=== PATIENT | female | born 1945 | race Caucasian/White ===

== ENCOUNTER 2019-06-12 21:50 | Inpatient (IN) | payer MEDICARE, MEDICAID, SELFPAY ==
[2019-06-12] VITALS (11 sets, daily range): BP systolic 160–204; BP diastolic 87–117; PULSE 88–104; RESP 15–20; TEMP 36.4–36.8; O2SAT 90–97; BMI 18.7
--- NOTE | 2019-06-12 22:02 | ED_ITS ---
Documented by User: SHANE Christianson 06/12/19 23:01 HPI - Extremity Problem General: Chief complaint: Extremity Injury, Lower Stated complaint: FALL Time Seen by Provider: 06/12/19 21:58 History of Present Illness: HPI Narrative: Patient arrived via ambulance from the senior living. History of fall out of the wheelchair landing on her right hip. Complains about hip pain. Patient is somewhat out of it with fentanyl do gui but does understand commands. Was given fentanyl in the ambulance. MD Complaint: extremity pain Onset (ago): hour(s) Pain Consistency: constant Location: right and lower extremity (Hip) Quality: aching Associated symptoms: Deny chest pain, fever(s) or rash Review of Systems Narrative: Patient is currently being treated for urinary tract infection via the senior living. Very difficult to elicit any kind history due to mediation. Awaiting history from [place]. Please examine senior living notes and history. Const: Denies: fever, chills or body aches Eyes: Denies: change in vision or blurry vision ENMT: Denies: throat pain or nasal congestion Card: Denies: chest pain or shortness of breath on exertion Resp: Denies: shortness of breath, productive cough or non-productive cough GI: Denies: abdominal pain, nausea or vomiting Musc: Reports: extremity pain Skin/Breast: Denies: rash Neuro: Denies: headache Psych: Denies: anxiety or depression Eber/Lymph: Denies: easy bruising PFSH ED PFSH: Statuses (acute, chronic, etc) shown below reflect problem list status as previously entered and may not be historically accurate Family History Denies family history of CAD (coronary artery disease) Clotting disorder Chronic kidney disease (CKD) Cancer Social History Smoking and tobacco status: never smoked Alcohol intake: never Substance/Drug Use: never 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 Physical Exam Const: COMMON NORMALS: no apparent distress, average body habitus and oriented x3 HENMT: COMMON NORMALS: normocephalic HEAD & SCALP: normal to inspection and normocephalic FACE & SINUS: normal facial exam Eye: COMMON NORMALS: conjunctivae normal GENERAL EYE: normal appearance of both eyes CONJUNCTIVA: Yes conjunctivae normal Neck/C-Spine: COMMON NORMALS: no JVD Chest: COMMONS NORMALS: inspection of chest normal Resp: COMMON NORMALS: normal respiratory effort and clear to auscultation bilaterally AUSCULTATION: clear to auscultation bilaterally, rhonchi and diminished lung sounds Cardio: COMMON NORMALS: no JVD, regular rate and regular rhythm RATE: regular rate RHYTHM: regular rhythm GI: COMMON NORMALS: normal to inspection, nondistended, normoactive bowel so unds Extremity: COMMON NORMALS: normal to inspection and full ROM OTHER: pt indicates that her right hip is hurting. She has no bruising lacerations or abrasions noted. Scalp exam is negative neuro is intact. Good distal neurovascular status right extremity. Neuro: COMMON NORMALS: oriented x3 Course Vital Signs: Vital signs: Vital Signs Temperature 97.5 F L 06/13/19 03:33 Pulse Rate 111 H 06/13/19 05:17 Respiratory Rate 16 06/13/19 04:06 Blood Pressure 131/75 06/13/19 05:17 Pulse Oximetry 96 06/13/19 05:17 MDM - Extremity (Nontraumatic) MDM Narrative: Medical decision making narrative: Discussed case with Dr. Twin Rodrigez handoff to him. I spoke with Dr. Marco Antnoio odonnell for admission Lab Data: Labs: Lab Results 06/12/19 06/12/19 06/12/19 Range/Units 20:55 20:55 20:55 WBC 13.1 H (4.0-10.0) 10^3/ uL RBC 5.30 (4.1-5.3) 10^6/u L Hgb 13.9 (11.5-15.3) g/dL Hct 42.8 (37.0-47.0) % MCV 80.8 L (81-99) fL MCH 26.2 L (28.0-34.0) pg MCHC 32.5 (30.0-36.0) g/dL RDW 13.4 (12.1-15.1) % Plt Count 208 (130-400) 10^3/c mm MPV 12.4 H (7.4-10.4) fL Neut % (Auto) 81.0 % Lymph % (Auto) 11.6 % [place] % (Auto) 5.6 % Eos % (Auto) 1.1 % Baso % (Auto) 0.3 % Neut # (Auto) 10.6 H (1.8-7.7) 10^3/u L Lymph # (Auto) 1.5 (0.8-4.8) 10^3/u L [place] # (Auto) 0.7 (0.2-0.9) 10^3/u L Eos # (Auto) 0.1 (0.0-0.8) 10^3/u L Baso # (Auto) 0.0 (0.0-0.1) 10^3/u L Nucleated RBC % (a uto) 0 % Nucleated RBCs # 0.0 /100WBC PT 13.20 (10.5-13.3) SECO NDS INR 0.97 (0.8-1.2) APTT 31.8 (23.9-36.7) SECO NDS Sodium 140 (136-145) mmol/L Potassium 3.9 (3.5-5.1) mmol/L Chloride 100 (98-107) mmol/L Carbon Dioxide 25 (22-29) mmol/L Anion Gap 18.9 (5-19) BUN 20 (8-23) mg/dL Creatinine 0.7 (0.5-0.9) mg/dL Glucose 134 H (74-106) mg/dL Calcium 10.3 (8.5-10.5) mg/dL Total Bilirubin 0.4 (0.15-1.2) mg/dL AST 26 (0-32) U/L ALT 18 (0-33) U/L Alkaline Phosphata se 85 (35-105) IU/L Total Protein 7.7 (6.6-8.7) g/dL Albumin 4.7 (3.5-5.2) g/dL Globulin 3.0 (1.3-4.6) g/dL Imaging Data^: Xray Ortho: My impression: Right femoral neck fracture, displaced Discharge Plan Discharge Patient Disposition: Admitted As Inpatient Admit Provider: Cong Millard Discharge Date/Time: 06/12/19 23:58 Coding Level of Care Code ED Change Analyst for Chg Fwd Exam Problem Focused Documented by User: Twin Rodrigez DO 06/13/19 05:26 HPI - Extremity Problem General: Chief complaint: Extremity Injury, Lower Stated complaint: FALL Time Seen by Provider: 06/12/19 21:58 PFSH ED PFSH: Statuses (acute, chronic, etc) shown below reflect problem list status as previously entered and may not be historically accurate Family History Denies family history of CAD (coronary artery disease) Clotting disorder Chronic kidney disease (CKD) Cancer Social History Smoking and tobacco status: never smoked Alcohol intake: never Substance/Drug Use: never 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 I agree with his history, evaluation, and work-up. This patient has a right femoral neck fracture. I discussed the case with orthopedics, who is willing to consult. The midlevel provider discussed with the hospitalist, who has evaluated the patient in the ER. I have written admission orders Vital Signs: Vital signs: Vital Signs Temperature 97.5 F L 06/13/19 03:33 Pulse Rate 111 H 06/13/19 05:17 Respiratory Rate 16 06/13/19 04:06 Blood Pressure 131/75 06/13/19 05:17 Pulse Oximetry 96 06/13/19 05:17 MDM - Extremity (Nontraumatic) Lab Data: Labs: Lab Results 06/12/19 06/12/19 06/12/19 Range/Units 20:55 20:55 20:55 WBC 13.1 H (4.0-10.0) 10^3/ uL RBC 5.30 (4.1-5.3) 10^6/u L Hgb 13.9 (11.5-15.3) g/dL Hct 42.8 (37.0-47.0) % MCV 80.8 L (81-99) fL MCH 26.2 L (28.0-34.0) pg MCHC 32.5 (30.0-36.0) g/dL RDW 13.4 (12.1-15.1) % Plt Count 208 (130-400) 10^3/c mm MPV 12.4 H (7.4-10.4) fL Neut % (Auto) 81.0 % Lymph % (Auto) 11.6 % [place] % (Auto) 5.6 % Eos % (Auto) 1.1 % Baso % (Auto) 0.3 % Neut # (Auto) 10.6 H (1.8-7.7) 10^3/u L Lymph # (Auto) 1.5 (0.8-4.8) 10^3/u L [place] # (Auto) 0.7 (0.2-0.9) 10^3/u L Eos # (Auto) 0.1 (0.0-0.8) 10^3/u L Baso # (Auto) 0.0 (0.0-0.1) 10^3/u L Nucleated RBC % (a uto) 0 % Nucleated RBCs # 0.0 /100WBC PT 13.20 (10.5-13.3) SECO NDS INR 0.97 (0.8-1.2) APTT 31.8 (23.9-36.7) SECO NDS Sodium 140 (136-145) mmol/L Potassium 3.9 (3.5-5.1) mmol/L Chloride 100 (98-107) mmol/L Carbon Dioxide 25 (22-29) mmol/L Anion Gap 18.9 (5-19) BUN 20 (8-23) mg/dL Creatinine 0.7 (0.5-0.9) mg/dL Glucose 134 H (74-106) mg/dL Calcium 10.3 (8.5-10.5) mg/dL Total Bilirubin 0.4 (0.15-1.2) mg/dL AST 26 (0-32) U/L ALT 18 (0-33) U/L Alkaline Phosphata se 85 (35-105) IU/L Total Protein 7.7 (6.6-8.7) g/dL Albumin 4.7 (3.5-5.2) g/dL Globulin 3.0 (1.3-4.6) g/dL Discharge Plan Discharge Patient Disposition: Admitted As Inpatient Admit Provider: Cong Millard Discharge Date/Time: 06/12/19 23:58 Coding Level of Care Code ED Change Analyst for Chg Fwd Exam Problem Focused
--- NOTE | 2019-06-12 22:02 | XRR_ITS ---
PROCEDURE INFORMATION: Exam: XR Pelvis Exam date and time: 06/12/2019 10:04 PM Age: 73 years old Clinical indication: Injury or trauma; Fall; Initial encounter; Blunt trauma (contusions or hematomas); Right; Hip; Injury date: 06/12/19; Additional info: Fall nh, right hip pain TECHNIQUE: Imaging protocol: XR pelvis. Views: 1 or 2 view. COMPARISON: No relevant prior studies available. FINDINGS: Bones/joints: There is an acute transverse fracture of the right femoral neck with resultant coxa vera deformity. Soft tissues: Unremarkable. XR/XR pelvis 1-2V* [id number] IMPRESSION: Acute transverse fracture of the right femoral neck
--- NOTE | 2019-06-12 22:05 | ECG_ITS ---
Measurements Intervals [place] Rate: 100 P: 74 OH: 152 QRS: 46 QRSD: 85 T: 74 QT: 360 QTc: 466 SINUS TACHYCARDIA SEPTAL MYOCARDIAL INFARCTION , PROBABLY OLD [40+ ms Q WAVE IN V1/V2] No previous ECG available for comparison Electronically Signed On 06-13-2019 18:52:19 TIMBER SETTER by Cong Hutchison M.D. [email or web address]
--- NOTE | 2019-06-12 22:05 | XRR_ITS ---
PROCEDURE INFORMATION: Exam: XR Chest, 1 View Exam date and time: 06/12/2019 10:06 PM Age: 73 years old Clinical indication: Injury or trauma; Fall; Initial encounter; Blunt trauma (contusions or hematomas); Injury date: 06/12/19; Additional info: PT fell, unknown how long before she was found TECHNIQUE: Imaging protocol: XR of the chest Views: 1 view. COMPARISON: No relevant prior studies available. FINDINGS: Lungs: There is a background of severe emphysematous change and parenchymal scarring. Some strandy opacities are present in the left lower hemithorax likely representing atelectasis. Pleural space: Unremarkable. No pleural effusion. No pneumothorax. Heart/Mediastinum: Unremarkable. No cardiomegaly. Bones/joints: Unremarkable. XR/XR chest 1V portable [id number] IMPRESSION: 1. Background of severe emphysema with pulmonary fibrosis. 2. Strandy opacities in the left lung base likely represents atelectasis.
[2019-06-12 22:13] LABS: Basophils % 0.3 %; Eosinophils # 0.1 10^3/uL (0.0-0.8); Eosinophils % 1.1 %; Hematocrit 42.8 % (37.0-47.0); Hemoglobin 13.9 g/dL (11.5-15.3); Lymphocytes # 1.5 10^3/uL (0.8-4.8); Lymphocytes % 11.6 %; Mean Corpuscular HGB Conc 32.5 g/dL (30.0-36.0); Mean Corpuscular Hemoglobin 26.2 pg (28.0-34.0); Mean Corpuscular Volume 80.8 fL (81-99); Mean Platelet Volume 12.4 fL (7.4-10.4); Monocytes # 0.7 10^3/uL (0.2-0.9); Monocytes % 5.6 %; Neutrophils # 10.6 10^3/uL (1.8-7.7); Nucleated Red Blood Cells % 0 %; Platelet Count 208 10^3/cmm (130-400); Red Cell Distribution Width 13.4 % (12.1-15.1); White Blood Count 13.1 10^3/uL (4.0-10.0)
[2019-06-12 22:27] LABS: Alanine Aminotransferase 18 U/L (0-33); Albumin Level 4.7 g/dL (3.5-5.2); Alkaline Phosphatase 85 IU/L (35-105); Anion Gap 18.9 (5-19); Aspartate Amino Transferase 26 U/L (0-32); Blood Urea Nitrogen 20 mg/dL (8-23); Calcium 10.3 mg/dL (8.5-10.5); Carbon Dioxide 25 mmol/L (22-29); Chloride 100 mmol/L (98-107); Glucose 134 mg/dL (74-106); Potassium 3.9 mmol/L (3.5-5.1); Sodium 140 mmol/L (136-145); Total Bilirubin 0.4 mg/dL (0.15-1.2); Total Protein 7.7 g/dL (6.6-8.7)
[2019-06-12] MEDS: ondansetron 2 mg/ML SDV 2 mL 4 MG IVP ×2 (22:47→23:49)
[2019-06-12] MEDS: morphine 4 mg/mL SDV 1 mL 2 MG IVP ×2 (22:47→23:48)
[2019-06-12 22:49] LABS: INR 0.97 (0.8-1.2)
[2019-06-12 22:50] LABS: Partial Thromboplastin Time 31.8 SECONDS (23.9-36.7)
--- NOTE | 2019-06-12 23:17 | PM.HP ---
Providers/Chief Complaint Chief Complaint: RIGHT FEMORAL NECK FRACTURE History of Present Illness Rochelle Grubbs is a 73 year old female carries diagnosis of multiple sclerosis, wheelchair-bound, the past medical history was sent from her alf [facility] for right leg pain. Patient is not a reliable historian, she is stating that she went to bathroom and fell. Currently her right leg pain is 6/10. I called [facility] alf, they are endorsing that she was found in a wheelchair and was complaining of right leg pain there was no witnessed fall. Her blood pressure was high, she is not on any antihypertensives, she is on mechanically soft diet for dysphagia, she uses wheelchair for ambulation, she has had multiple falls in the past due to her multiple sclerosis and generalized leg weakness. Her speech is slow at baseline, with cognitive impairment. Diagnostics in ER showed femoral neck fracture, patient is hypertensive, she was hypoxic initially to 90% on room air and currently doing well on 2 L, tachycardic I ordered CTA chest to rule out a clot which could have caused a syncopal event, fall Temperature 97.4, pulse 106, respiratory 22, O2 saturation 92% on 2 L, blood pressure 190/120 Review of Systems Const: Reports: body aches, change in appetite, fatigue and malaise; Denies: chills Eyes: Denies: change in vision ENMT: Denies: throat pain Card: Denies: chest pain Resp: Denies: shortness of breath GI: Denies: abdominal pain : Denies: flank pain Musc: Reports: joint pain and limited range of motion; Denies: neck pain Skin/Breast: Denies: rash Neuro: Reports: numbness in extremities and weakness in extremities Psych: Reports: anxiety Endo: Denies: excessive urination Eber/Lymph: Denies: easy bruising All/Imm: Denies: hives Medications/Allergies Home Medications Medication Instructions Recorded Confirmed Last Taken Type [id number] fumarate-FA 1 tab PO DAILY 06/12/19 06/12/19 06/12/19 History [] acetaminophen [Tylenol] 650 mg PO QID PRN 06/12/19 06/12/19 06/12/19 History amoxicillin 250 mg PO TID 06/12/19 06/12/19 06/12/19 History cetirizine [Zyrtec] 10 mg PO DAILY 06/12/19 06/12/19 06/12/19 History ferrous sulfate 325 mg PO DAILY 06/12/19 06/12/19 06/12/19 History fluoxetine 15 mg PO DAILY 06/12/19 06/12/19 06/12/19 History guaifenesin 200 mg PO Q6H 06/12/19 06/12/19 06/12/19 History ondansetron HCl [Zofran] 4 mg PO Q6H PRN 06/12/19 06/12/19 06/12/19 History Allergies Allergy/AdvReac Type Severity Reaction Status Date / Time No Known Allergies Allergy Verified 06/12/19 21:59 PFSH Acute PFSH: Statuses (acute, chronic, etc) shown below reflect problem list status as previously entered and may not be historically accurate Medical History (Updated 06/13/19 @ 00:05 by Cong Millard MD) Anxiety (Acute) Dementia (Acute) Multiple sclerosis (Acute) UTI (urinary tract infection) (Acute) Surgical History (Updated 06/13/19 @ 00:02 by Cong Millard MD) No pertinent past surgical history (Acute) Family History (Updated 06/13/19 @ 00:02 by Cong Millard MD) Denies family history of CAD (coronary artery disease) Clotting disorder Chronic kidney disease (CKD) Cancer Social History (Updated 06/13/19 @ 00:03 by Cong Millard MD) Smoking and tobacco status: never smoked Alcohol intake: never Substance/Drug Use: never Housing: Residential Vitals/I&O/Wt Last Vital Signs Temp 98.2 F 06/12/19 21:51 Pulse 104 H 06/12/19 22:15 Resp 18 06/12/19 22:47 BP 199/100 06/12/19 22:15 Pulse Ox 97 06/12/19 22:15 Weight last 48 hrs Weight 51.165 kg Physical Exam Narrative: EXAM NARRATIVE: Appears stated age, Her speech is slow, but she is able to articulate her thoughts, she is able to comprehend my questions and answer questions appropriately Cranial nerves grossly intact cranial nerves II to XII Lower extremity limited range of motion Right leg slightly shorter than the left Dorsalis pedis pulses 2+ bilaterally No active signs of bruising, gangrene or ulcers on skin S1, S2 no signs of heart failure or JVD Lungs are clear to auscultation Abdomen soft nontender nondistended She appears dehydrated with mild distress Appears anxious Data : 06/12/19 20:55 06/12/19 20:55 Micro: Microbiology 06/12/19 22:13 Blood Culture - Preliminary Blood SPECIMEN COLLECTED A&P Assessment and plan (1) Fracture of femoral neck, right: Status: Acute Code(s): S72.001A - Fracture of unspecified part of neck of right femur, initial encounter for closed fracture (2) Hypertension: Status: Acute Code(s): I10 - Essential (primary) hypertension (3) Hypoxia: Status: Acute Code(s): R09.02 - Hypoxemia Additional A&P Information Acute transverse fracture of right femoral neck She has good dorsalis pedis pulses bilaterally Keep n.p.o., D5 half-normal fluids, pain management with opioids and bowel regimen Schmitt catheter to be placed Orthopedic surgeon Dr. Guillory has been contacted by Dr. Rodrigez Patient sustained a fall in the bathroom, she has had multiple falls in the past, she has a history of multiple sclerosis, She is currently being treated for UTI with amoxicillin, I will change that to ceftriaxone for now Acute hypoxic respiratory failure, she was saturating 90% on room air, currently doing well on 2 L, she is tachycardic We will get CTA chest to rule out PE No petechiae evident on her chest, air embolism will be in differential as well Hypertension: Not on any antihypertensive at the facility, currently she is in pain which I think is attributing to her hypertension I would avoid use of lisinopril We will try hydralazine IV for now Patient is DNR/DNI SCDs for DVT prophylaxis Attestations Medical Necessity Statement*: Anticipating her stay to cross more than 2 midnights because of acute fracture of femoral neck Time Spent in Patient Care: 50 Coding Level of Care Code Acute Business Education Instructor for Aditi Fwd Diagnoses Fracture of femoral neck, right S72.001A Hypertension I10 Hypoxia R09.02
--- NOTE | 2019-06-12 23:18 | CTR_ITS ---
PROCEDURE INFORMATION: Exam: CT Angiography Chest With Contrast Exam date and time: 06/12/2019 11:50 PM Age: 73 years old Clinical indication: Dyspnea; Additional info: Hypoxia TECHNIQUE: Imaging protocol: Computed tomographic angiography of the chest with intravenous contrast. 3D rendering: MIP and/or 3D reconstructed images were created by the technologist. Total DLP: 484 mGy-cm Radiation optimization: All CT scans at this facility use at least one of these dose optimization techniques: automated exposure control; mA and/or kV adjustment per patient size (includes targeted exams where dose is matched to clinical indication); or iterative reconstruction. Contrast material: OMNI 350; Contrast volume: 95 ml; Contrast route: IV; COMPARISON: CR (CHEST, ) 06/12/2019 10:18 PM FINDINGS: Pulmonary arteries: Normal. No pulmonary emboli. Aorta: Calcifications are seen within the thoracic aorta. Lungs: There is a background of centrilobular emphysema and bronchiectasis. Pleural space: There are calcific pleural plaques seen within the upper hemithoraces bilaterally. Heart: Calcifications are present within the coronary arteries. Lymph nodes: Unremarkable. No enlarged lymph nodes. Bones/joints: Unremarkable. No acute fracture. Soft tissues: Unremarkable. CT/CT angio chest PE protcl [id number] IMPRESSION: 1. There is no evidence for pulmonary emboli. 2. Background of centrilobular emphysema and bronchiectasis 3. Calcified pleural plaques within the upper hemithoraces bilaterally. Radiation Dose CTDIVOL = (mGy): DLP = 484 (mGy-cm)
[2019-06-12] MEDS: metoprolol tartrate 1 mg/1 mL SDV 5 mL 5 MG IV (23:49)
[2019-06-13] VITALS (12 sets, daily range): BP systolic 114–182; BP diastolic 61–100; PULSE 63–111; RESP 16–20; TEMP 36.4–37.9; O2SAT 88–98
[2019-06-13 01:04] LABS: Glucose Point of Care 126 mg/dL (70-110)
--- NOTE | 2019-06-13 01:19 | CTR_ITS ---
PROCEDURE INFORMATION: Exam: CT Head Without Contrast Exam date and time: 06/13/2019 1:27 AM Age: 73 years old Clinical indication: Weakness, facial; Additional info: Stroke alert TECHNIQUE: Imaging protocol: Computed tomography of the head without contrast. Total DLP: 880.15 mGy-cm Radiation optimization: All CT scans at this facility use at least one of these dose optimization techniques: automated exposure control; mA and/or kV adjustment per patient size (includes targeted exams where dose is matched to clinical indication); or iterative reconstruction. Other technique: STROKE PROTOCOL was implemented. COMPARISON: No relevant prior studies available. FINDINGS: Brain: There is mild diffuse cerebral atrophy. Patchy areas of hypoattenuation are seen in the deep white matter of the cerebral hemispheres bilaterally compatible with deep white matter microvascular disease. Focal hypoattenuation seen within the external capsules bilaterally likely representing chronic infarctions. Focal hypoattenuation is seen within the right caudate head compatible with a chronic lacunar infarction. Focal hypoattenuation seen within the left basal ganglia compatible with a chronic lacunar infarction. Ventricles: Normal. No ventriculomegaly. Bones/joints: Unremarkable. No acute fracture. Sinuses: Visualized sinuses are unremarkable. No fluid levels. Mastoid air cells: Visualized mastoid air cells are well aerated. Soft tissues: Unremarkable. CT/CT head wo con* [id number] IMPRESSION: There are no acute intracranial findings. ASSESSMENT: ASPECTS ([place] Stroke Program Early CT Score) is 10. Radiation Dose CTDIVOL = (mGy): DLP = 880.15 (mGy-cm)
--- NOTE | 2019-06-13 02:15 | PC.NURSE ---
stroke alert. Pt in ct on my arrival. LKW 0030 06/13/2019. NIHSS 4. Patient confused at baseline and not able to answer my assessment questions appropriately. Contacted patient's DPOASonia, and updated her on situation. Patient determined not to be a tPA candidate due to current hip fx, possibly related to MS, and patient returning to baseline.
--- NOTE | 2019-06-13 03:15 | USCV_ITS ---
Rochelle Grubbs Age: 73 Gender: F : 1945 Exam Date: 06/13/2019 12:36 Ordering Phys: Cong Millard MD Technologist: Romi Dominguez Exam Location: [facility] [place] Indication: Poor functional status, preoperative test BP: 145 / 75 HR: 88 Rhythm: Sinus Technical Quality: Fair MEASUREMENTS (Male / Female) Normal Values 2D ECHO LV Diastolic Diameter PLAX 3.3 cm 4.2 - 5.9 / 3.9 - 5.3 cm LV Systolic Diameter PLAX 2.1 cm LV Chamber Size 3.1 cm IVS Diastolic Thickness 1.6 cm 0.6 - 1.0 / 0.6 - 0.9 cm IVS Systolic Thickness 2.0 cm LVPW Diastolic Thickness 0.9 cm 0.6 - 1.0 / 0.6 - 0.9 cm LVPW Systolic Thickness 1.1 cm RV Chamber Size 1.8 cm LVOT Diameter 2.0 cm LV Ejection Fraction 2D Teich 65.3 % LV Ejection Fraction MOD 2C 69.1 % LV Ejection Fraction 2C AL 76.1 % LA Diameter 3.3 cm LA Width 3.0 cm LA Height 4.8 cm RA Width 2.6 cm RA Height 3.7 cm Aorta at Sinotubular Diameter 2.2 cm M-MODE LV Diastolic Diameter MM 4.7 cm 4.2 - 5.9 / 3.9 - 5.3 cm LV Systolic Diameter MM 2.6 cm LV Ejection Fraction MM Teich 75.3 % IVS Diastolic Thickness MM 1.0 cm 0.6 - 1.0 / 0.6 - 0.9 cm IVS Systolic Thickness MM 1.8 cm LVPW Diastolic Thickness MM 1.1 cm 0.6 - 1.0 / 0.6 - 0.9 cm LVPW Systolic Thickness MM 1.5 cm RV Diastolic Diameter MM 1.2 cm Aortic Annulus Diameter 3.2 cm LA Ao Ratio MM 1.0 MV E Point Septal Separation 0.7 cm DOPPLER AV Peak Velocity 121.0 cm/s LVOT Peak Velocity 98.0 cm/s AV Area Cont Eq vti 2.6 cm squared AV Area Cont Eq pk 2.6 cm squared MV Area PHT 2.6 cm squared Mitral E to A Ratio 0.8 MV E' Velocity 7.0 cm/s Mitral E to MV E' Ratio 12.7 Mitral E to LV E' Lateral Ratio 10.8 Mitral E to LV E' Septal Ratio 15.5 TR Peak Velocity 314.0 cm/s TR Peak Gradient 39.4 mmHg TV Peak E Velocity 59.0 cm/s Right Atrial Pressure 3.0 mmHg Pulmonary Artery Systolic Pressu 42.4 mmHg PV Peak Velocity 80.0 cm/s RV Acceleration Time 0.1 s RV Ejection Time 0.3 s RV AcT/ET 0.3 FINDINGS Left Ventricle Normal left ventricular cavity size. Normal left ventricular systolic function. No regional wall motion abnormalities. Left ventricular ejection fraction is estimated at 70 %. Grade I/IV diastolic dysfunction (abnormal relaxation filling pattern), normal to mildly elevated filling pressures. Right Ventricle The right ventricle is normal in size and function. Mild pulmonary hypertension, RVSP 42.4 mmHg. Right Atrium The right atrium is normal in size. Left Atrium The left atrium is normal in size. Mitral Valve Mildly thickened mitral valve. No mitral valve stenosis. Mild mitral valve regurgitation. Aortic Valve Mild aortic valve calcification. No aortic valve stenosis. Trace aortic valve regurgitation. Tricuspid Valve Structurally normal tricuspid valve without significant stenosis or regurgitation. Pulmonic Valve Structurally normal pulmonic valve without significant stenosis. There is no pulmonic regurgitation. Pericardium Normal pericardium without effusion. Aorta Normal ascending aorta dimension. CONCLUSIONS 1-Normal left ventricular cavity size. Normal left ventricular systolic function. No regional wall motion abnormalities. Left ventricular ejection fraction is estimated at 70 %. Grade I/IV diastolic dysfunction (abnormal relaxation filling pattern), normal to mildly elevated filling pressures. 2-Mildly thickened mitral valve. No mitral valve stenosis. Mild mitral valve regurgitation. 3-The right ventricle is normal in size and function. Mild pulmonary hypertension, RVSP 42.4 mmHg. 4-Mild aortic valve calcification. No aortic valve stenosis. Trace aortic valve regurgitation. 5-There is no pericardial effusion. 6-Right atrial pressure is around 0-5 mm of mercury. Patient appeared to be dry. 7-There are no prior echocardiogram studies to compare. Cong Hutchison MD (Electronically Signed) Final Date: 13 June 2019 16:35 S
--- NOTE | 2019-06-13 03:34 | PC.NURSE ---
STROKE ALERT Nurse assessed patient upon admission and patient had right side facial droop. Charge nurse Yvette and Dr Millard notified, Dr Millard at for patient assessment. Stroke alert called at 0114, NIH score 4 for right facial droop, mild slurred speech, sensory deficit. Patient taken immediately to CT for CT Head and was taken to ED for Tele- stroke consult. Fuel Cell Builder Barber THORNTON and Dr Elia FIGUEROA MD at at this time as well with stroke team. MRI recommended by tele-stroke doctor. Patient is not a candidate of TPA at this time. Patient's sister Sonia notified of situation and is agreeable. Patient is agreeable of treatment as well. Patient returned to [facility] and appears to be at baseline at this time, patient continues with mild facial droop. Patient on telemetry and is being monitored by nursing staff at this time. Patient does not voice any further needs or complains at this time.
[2019-06-13] MEDS: hyDRALAzine 20 mg/mL INJ 1 mL 10 MG IVP (03:47)
[2019-06-13] MEDS: morphine 4 mg/mL SDV 1 mL IVP ×2 (03:48→10:08)
[2019-06-13] MEDS: cefTRIAXone 1,000 MG in sodium chloride 0.9% (plus) 50 ML 100 MG IV (03:49)
[2019-06-13] MEDS: dextrose 5%-sod chloride 0.45% 1,000 ML 75 ML IV (03:49)
[2019-06-13 05:03] LABS: Basophils % 0.1 %; Eosinophils % 0.1 %; Hematocrit 39.6 % (37.0-47.0); Hemoglobin 12.7 g/dL (11.5-15.3); Lymphocytes # 0.8 10^3/uL (0.8-4.8); Lymphocytes % 5.2 %; Mean Corpuscular HGB Conc 32.1 g/dL (30.0-36.0); Mean Corpuscular Hemoglobin 25.9 pg (28.0-34.0); Mean Corpuscular Volume 80.8 fL (81-99); Mean Platelet Volume 12.3 fL (7.4-10.4); Monocytes % 6.2 %; Neutrophils # 14.1 10^3/uL (1.8-7.7); Neutrophils % 87.8 %; Nucleated Red Blood Cells % 0 %; Platelet Count 179 10^3/cmm (130-400); Red Cell Distribution Width 13.2 % (12.1-15.1); White Blood Count 16.1 10^3/uL (4.0-10.0)
[2019-06-13 05:19] LABS: Alanine Aminotransferase 58 U/L (0-33); Albumin Level 4.1 g/dL (3.5-5.2); Alkaline Phosphatase 85 IU/L (35-105); Aspartate Amino Transferase 99 U/L (0-32); Blood Urea Nitrogen 15 mg/dL (8-23); Calcium 9.4 mg/dL (8.5-10.5); Carbon Dioxide 25 mmol/L (22-29); Chloride 100 mmol/L (98-107); Globulin 3.3 g/dL (1.3-4.6); Glucose 176 mg/dL (74-106); Sodium 140 mmol/L (136-145); Total Bilirubin 0.5 mg/dL (0.15-1.2); Total Protein 7.4 g/dL (6.6-8.7)
[2019-06-13] MEDS: ondansetron 2 mg/ML SDV 2 mL 4 MG IVP (10:07)
--- NOTE | 2019-06-13 10:12 | ECG_ITS ---
Measurements Intervals [place] Rate: 93 P: 90 DC: 175 QRS: 66 QRSD: 89 T: 71 QT: 377 QTc: 470 SINUS RHYTHM NONSPECIFIC T-WAVE ABNORMALITY No previous ECG available for comparison Electronically Signed On 06-13-2019 18:55:09 SECRETARY BOOK KEEPER by Cong Hutchison M.D. [id number]
--- NOTE | 2019-06-13 10:15 | PC.NURSE ---
Patient taken to MRI via ambulance transport. After transferring patient to MRI stretcher patient started vomiting. Assisted patient to a semi lateral position. Patient vomited moderate amount of dark green bile. Decision to was made to not complete test at that time.
--- NOTE | 2019-06-13 10:30 | XRR_ITS ---
PROCEDURE INFORMATION: Exam: XR Chest, 1 View Exam date and time: 06/13/2019 10:59 AM Age: 73 years old Clinical indication: Patient HX: PT was admitted and surgery done on RT femoral FX. PT recently started vomiting, questionable aspiration. PT is non verbal, came from a nh. TECHNIQUE: Imaging protocol: XR of the chest Views: 1 view. COMPARISON: CR (CHEST, ) 06/12/2019 10:18 PM FINDINGS: There is scattered emphysematous change and scarring in each lung. Otherwise no focal pulmonary consolidation is demonstrated on this single frontal image. No significant obscuration of the lateral costophrenic angles is demonstrated. No significant vascular congestion is demonstrated. Visualized cardiac silhouette size appears within normal limits. XR/XR chest 1V portable [id number] IMPRESSION: No definite acute pulmonary process is demonstrated. There is scattered emphysematous change and scarring in each lung.
--- NOTE | 2019-06-13 10:33 | P.PN_ITS ---
Subjective Subjective: Interval history: This morning patient was examined, patient states that she is doing fine, can say a few words here and there, does follow, such as squeezing my fingers, wiggling her toes, but does not follow commands such as smiling, closing her eyes, moving her upper and lower extremities, opening her mouth, at other times does not follow commands, does not respond jose ropriately. She does have a slight right facial droop, no slurring as per my examination, no right upper extremity weakness, as she was able to squeeze my finger under equally bilaterally on the right and left upper extremity, did not follow commands such as shoulder shrugging her shoulders bilaterally, can wiggle her toes bilaterally, but does not really move her bilateral lower extremities. [place] [facility] to [place] [facility], [facility] staff states that she is a full assist, but she can feed herself, does move her upper extremities, has bilateral lower extremity weakness, does not move them much, she can carry out a conversation, no facial droop at the [facility], but nurses do state at times that she slurs her speech. long-term staff states that last night she fell at that, that is what brought her to the [facility]. Patient was supposed to have an MRI brain this morning, however in the MRI suite, patient vomited, concerns for aspiration, MRI brain was unfortunately not completed Vitals/I&O/Wt Last Vital Signs Temp 97.9 F 06/13/19 07:13 Pulse 101 H 06/13/19 09:15 Resp 18 06/13/19 10:08 BP 145/75 06/13/19 07:13 Pulse Ox 97 06/13/19 09:15 06/12/19 06/13/19 06/13/19 22:59 06:59 14:59 Intake Total 50 / 50 Output Total 400 / 400 Balance -350 / -350 Weight last 48 hrs Weight 51.165 kg Physical Exam Const: COMMON NORMALS: alert ORIENTATION/CONSCIOUSNESS: Yes oriented to person; not oriented to place and not oriented to time Eye: COMMON NORMALS: PERRL PUPIL: Yes PERRL OTHER: Unable to follow thorough extraocular exam Neck/C-Spine: COMMON NORMALS: no lymphadenopathy Lymph: LYMPHATIC: no lymphadenopathy noted Resp: COMMON NORMALS: normal respiratory effort, no retractions, no use of accessory muscles and clear to auscultation bilaterally AUSCULTATION: clear to auscultation bilaterally Cardio: COMMON NORMALS: regular rate, regular rhythm, S1 normal heart sound and S2 normal heart sound RATE: regular rate RHYTHM: regular rhythm HEART SOUNDS: S1 normal and S2 normal GI: COMMON NORMALS: normal to inspection, nondistended, normoactive bowel sounds, soft to palpation, non-tender and no hepatosplenomegaly PALPATION: Yes soft and Yes no hepatosplenomegaly Extremity: COMMON NORMALS: normal capillary refill, no clubbing, cyanosis or edema and no pedal edema Neuro: SENSORIUM/ORIENTATION: Yes alert, Yes oriented to person, No oriented to place, No oriented to time and Yes fluctuating sensorium CRANIAL NERVES: Yes other (Unable to cooperate with neurologic exam) COORDINATION/BALANCE: other (Unable to cooperate with neurologic exam) SPEECH: other (Able to say a few words here and there, no slurring of speech noted) SENSORY EXAM: Yes other (Unable to cooperate with neurologic exam) MOTOR EXAM: other (Upper extremities, strength at that has 5 out of 5 bilaterally, unable to follow examination for shoulder shrug) COORDINATION: other (Unable to cooperate with neurologic exam) OTHER: Able to wiggle her toes bilaterally, does withdraw from pain, does not follow examination of bilateral lower extremities Urinary Catheter Management^: Schmitt: Cath Placed During This Visit: no Data : 06/13/19 04:45 06/13/19 04:45 Micro: Microbiology 06/12/19 22:13 Blood Culture - Preliminary Blood SPECIMEN COLLECTED A&P Assessment and plan (1) Fracture of femoral neck, right: -MRI of the brain and cardiac echocardiogram pending -Continue telemetry monitoring -Dr. Guillory on consult Status: Acute Code(s): S72.001A - Fracture of unspecified part of neck of right femur, initial encounter for closed fracture (2) CVA (cerebral vascular accident): -Right facial droop persists, no slurring of her speech, difficult to complete thorough neurologic exam as patient does not follow exam -NIH stroke score was 4, stroke telemetry at [facility] was consulted this morning, who felt that her symptoms might be related to her multiple sclerosis -Needs bedside swallow -PT OT -Aspirin, statin -Allow permissive hypertension for the next 48 hours Status: Acute Code(s): I63.9 - Cerebral infarction, unspecified (3) Hypoxia: Acute respiratory failure, requiring up to 2 L of oxygen Possible aspiration versus aspiration pneumonitis Continue oxygen therapy We will change her antibiotics to Zosyn Status: Acute Code(s): R09.02 - Hypoxemia (4) Hypertension: Status: Acute Code(s): I10 - Essential (primary) hypertension (5) UTI (urinary tract infection): Status: Acute Code(s): N39.0 - Urinary tract infection, site not specified Attestations Medical Necessity Statement*: Patient requires continued hospitalization due to femoral fracture, CVA Coding Level of Care Code Acute Nuclear Fuels Research Engineer for g Fwd Diagnoses Fracture of femoral neck, right S72.001A CVA (cerebral vascular accident) I63.9 Hypoxia R09.02 Hypertension I10 UTI (urinary tract infection) N39.0
--- NOTE | 2019-06-13 11:53 | PC.CHAP ---
Pastoral Care Encounter/Spiritual Assessment Type of Contact [] Declined acid purification equipment operator visit [] Patient/Family/Request visit [] Outpatient visit [] Follow-up visit [] Physician referral [] Code/Alert [] Routine visit [] Staff referral [] Actively dying [x] Patient sleeping [] Family support [] [] Out of room [] Palliative care [] [] Receiving care in room [] Pre-surgical visit [] Trauma [] Long length of stay [] ICU visit [] Other: Relational/Emotional Strength [] Patient feels connected with others/family/visitors/staff [] Distress [] Loneliness/isolation [] Abandonment Spirituality of Patient [] Person of Lupis [] Attends Mormon of their Lupis [] Believes in Prayer [] Reads Bible or Pentecostalism materials [] There are Spiritual issues to be addressed Convex Grinder Operator Interventions [] Prayer [] Active listening [] Non-anxious presence [] Spiritual/emotional support [] Crisis/trauma care [] Spiritual counseling [] Bereavement support [] Provided bereavement packet [] Provided Bible/devotional materials [] Provided toy/stuffed animal, coloring book to patient or family member [] Completed spiritual assessment [] Provided Communion [] Anointing/[place] [] Salvation [] Other: Impact on Illness or Injury [] Angry [] Fearful [] Anxious [] Often cries [] Exhaustion [] Unable to work [] Unable to attend cheondoism [] Unable to walk/stand [] Unable to read [] Unable to drive [] Unable to eat/drink [] Unable to sleep [] Unable to be with family [] Other: Summary needs Follow up visit. Time spent with patient
[2019-06-13] MEDS: piperacillin-tazobactam 3.375 GM in sodium chloride 0.9% (plus) 50 ML IV ×2 (14:09→22:37)
--- NOTE | 2019-06-13 15:12 | USR_ITS ---
PROCEDURE INFORMATION: Exam: US Duplex Bilateral Extracranial Arteries Exam date and time: 06/13/2019 3:13 PM Age: 73 years old Clinical indication: Altered mental status/memory loss; Additional info: Stroke TECHNIQUE: Imaging protocol: Real-time Duplex ultrasound scan of the bilateral carotid and vertebral arteries combining bazzi scale, color Doppler and spectral waveform analysis. Bilateral exam. COMPARISON: CT head wo con* [id number] 06/13/2019 1:42 AM FINDINGS: Right common carotid artery: Unremarkable. No occlusion or stenosis. Waveforms are normal. Right internal carotid artery: Small amount of heterogeneous plaque proximally. No occlusion or stenosis. Waveforms are normal. Right ICA/CCA ratio: Within normal limits. Right external carotid artery: No stenosis in the origin. Right vertebral artery: Unremarkable. Antegrade flow Left common carotid artery: Unremarkable. No occlusion or stenosis. Waveforms are normal. Left internal carotid artery: Small amount of heterogeneous plaque proximally. No occlusion or stenosis. Waveforms are normal. Left ICA/CCA ratio: Within normal limits. Left external carotid artery: No stenosis in the origin. Left vertebral artery: Unremarkable. Antegrade flow. US/CV carotid duplex BI* [id number] IMPRESSION: No hemodynamically significant carotid arterial stenosis. REFERENCE: Carotid Stenosis Reference using SRU criteria: Mild: less than 50% stenosis. ICA PSV is less than 125 cm/second and plaque or intimal thickening is visible. Moderate: 50-69% stenosis. ICA PSV is 125 to 230 cm/second and plaque is visible. Severe: 70-94% stenosis. ICA PSV is more than 230 cm/second and visible plaque and lumen narrowing are seen. Near occlusion: 95-99% stenosis. ICA PSV is variable and significant plaque and luminal narrowing are seen. Occluded: 100% stenosis. No flow identified.
--- NOTE | 2019-06-13 15:20 | P.CONIM_ITS ---
Providers/Reason For Consult Consulting Physican/Specialty*: orthopedic surgery: Dante Guillory D.O. Reason for Consult*: right hip pain Attending Physician: Rogelio Yousif MD History of Present Illness History of Present Illness Rochelle Grubbs is a 73 year old female who was brought to the emergency room last evening. She evidently had fallen and was found down. From reviewing the chart there appears to be some issue with the patient experiencing facial droop. She has a history of multiple sclerosis. She was under treatment for urinary tract infection prior to admission. X-rays of the pelvis show displaced right femoral neck fracture which appears acute in nature. Review of Systems General: Reports: ROS unobtainable due to mental status Meds/Allergies Home Medications and Allergies Home Medications Medication Instructions Recorded Confirmed Type [id number] fumarate-FA 1 tab PO DAILY 06/12/19 06/12/19 History [] acetaminophen [Tylenol] 650 mg PO QID PRN 06/12/19 06/12/19 History amoxicillin 250 mg PO TID 06/12/19 06/12/19 History cetirizine [Zyrtec] 10 mg PO DAILY 06/12/19 06/12/19 History ferrous sulfate 325 mg PO DAILY 06/12/19 06/12/19 History fluoxetine 15 mg PO DAILY 06/12/19 06/12/19 History guaifenesin 200 mg PO Q6H 06/12/19 06/12/19 History ondansetron HCl [Zofran] 4 mg PO Q6H PRN 06/12/19 06/12/19 History Allergies Allergy/AdvReac Type Severity Reaction Status Date / Time No Known Allergies Allergy Verified 06/12/19 21:59 Current Medications Current Medications Generic Name Dose Route Start Last Admin Trade Name Freq PRN Reason Stop Dose Admin Dextrose/Sodium Chloride 1,000 mls @ 75 mls/hr 06/13/19 00:52 06/13/19 03:49 Dextrose 5%-Sod Chloride 0.45% IV 75 mls/hr .[id number] [place] Administration Piperacillin Sod/Tazobactam 50 mls @ 12.5 mls/hr 06/13/19 14:00 06/13/19 14:09 Sod 3.375 gm/ Sodium Chloride IV 12.5 mls/hr Q8H [place] Administration Protocol Morphine Sulfate 4 mg 06/13/19 00:52 06/13/19 10:08 Morphine IVP 4 mg Q4H PRN Administration SEVERE PAIN Ondansetron HCl 4 mg 06/13/19 00:52 06/13/19 10:07 Zofran IVP 4 mg Q6H PRN Administration NAUSEA AND VOMITING Senna/Docusate Sodium 1 tab 06/13/19 09:00 06/13/19 10:06 Senna-S PO Not Given BID [place] PFSH Acute PFSH: Statuses (acute, chronic, etc) shown below reflect problem list status as previously entered and may not be historically accurate Medical History Anxiety (Acute) Dementia (Acute) Multiple sclerosis (Acute) UTI (urinary tract infection) (Acute) Surgical History No pertinent past surgical history (Acute) Family History Denies family history of CAD (coronary artery disease) Clotting disorder Chronic kidney disease (CKD) Cancer Social History Smoking and tobacco status: never smoked Alcohol intake: never Substance/Drug Use: never Housing: Alf Vitals/I&O/Wt Last Vital Signs Temp 98.4 F 06/13/19 11:12 Pulse 90 06/13/19 11:12 Resp 20 H 06/13/19 11:12 BP 114/61 06/13/19 11:12 Pulse Ox 97 06/13/19 11:12 06/13/19 06/13/19 06/13/19 06:59 14:59 22:59 Intake Total 50 / 50 Output Total 400 / 400 Balance -350 / -350 Weight last 48 hrs Weight 112 lb 12.8 oz Physical Exam Narrative: EXAM NARRATIVE: 73-year-old white female in no acute distress. Const: COMMON NORMALS: no apparent distress; negative for oriented x3 EXAM LIMITATIONS: altered mental status GENERAL APPEARANCE: not cooperative and not combative NUTRITIONAL APPEARANCE: thin ORIENTATION/CONSCIOUSNESS: Yes awake and Yes confused; not oriented to person (when patient was asked her name. replied Rochelle but could not give her last), not oriented to place and not oriented to time HENMT: COMMON NORMALS: normocephalic, head/scalp atraumatic and hearing grossly normal bilaterally HEAD & SCALP: normocephalic and atraumatic FACE & SINUS: face not symmetric MOUTH: tongue normal; tongue not abnormal Neck/C-Spine: COMMON NORMALS: no JVD Resp: COMMON NORMALS: normal respiratory effort, no retractions, no use of accessory muscles and clear to auscultation bilaterally AUSCULTATION: clear to auscultation bilaterally Cardio: COMMON NORMALS: no JVD, regular rate and regular rhythm; negative for no murmurs RATE: regular rate RHYTHM: regular rhythm GI: COMMON NORMALS: normal to inspection, nondistended, normoactive bowel sounds, soft to palpation and non-tender PALPATION: Yes soft Extremity: COMMON NORMALS: normal capillary refill, no clubbing, cyanosis or edema, no calf tenderness and no pedal edema RIGHT LOWER EXTREMITY: Yes hip joint (right lower extremity slightly shortened. Patient holding right hip flexed) and Yes lower leg Right lower leg: Yes special tests Right lower leg special tests: Catrachita's sign: Negative LEFT LOWER EXTREMITY: Yes lower leg Left lower leg: Yes special tests Left lower leg special tests: Catrachita's sign: Negative Neuro: COMMON NORMALS: negative for oriented x3 SENSORIUM/ORIENTATION: No oriented to person (when patient was asked her name. replied Rochelle but could not give her last), No oriented to place and No oriented to time Urinary Catheter Management^: Schmitt: Cath Placed During This Visit: no Data Micro: Micro: Microbiology 06/12/19 22:13 Blood Culture - Pr eliminary Blood SPECIMEN [facility] A&P Assessment and plan (1) Fracture of femoral neck, right: displaced right femoral neck fracture patient is medically clear surgical intervention will be performed. Dr. Khalil will be assuming the patient's care starting tomorrow. Dr. Khalil has been made aware of the patient's presence in the hospital. Status: Acute Code(s): S72.001A - Fracture of unspecified part of neck of right femur, initial encounter for closed fracture (2) UTI (urinary tract infection): patient started on Rocephin by hospitalist team Status: Acute Code(s): N39.0 - Urinary tract infection, site not specified (3) CVA (cerebral vascular accident): patient being evaluated for acute CVA Status: Acute Code(s): I63.9 - Cerebral infarction, unspecified (4) Hypertension: being treated by hospitalist team. On no medications for hypertension prior to being admitted Status: Acute Code(s): I10 - Essential (primary) hypertension Consult Attestations Medical Necessity Statement: patient's care will cross greater than to midnight stays as patient is still being evaluated and will require medical clearance/risk stratification prior to being considered for surgical intervention Time Spent in Patient Care: 16 - 35 minutes Coding Level of Care Code Acute Fuel Retrofitting Technician for [facility] Fwd Diagnoses Fracture of femoral neck, right S72.001A UTI (urinary tract infection) N39.0 CVA (cerebral vascular accident) I63.9 Hypertension I10
[2019-06-13] MEDS: sodium chloride 0.9% 1,000 ML 75 ML IV (17:24)
--- NOTE | 2019-06-13 18:31 | PC.NURSE ---
Patient has been sleepy this shift, she has not received oral medications due to being sleepy. She does arouse when stimulated and swallows thin liquids well.
[2019-06-13] MEDS: atorvastatin 40 mg Tablet 80 MG PO (21:08)
[2019-06-14] VITALS (12 sets, daily range): BP systolic 133–204; BP diastolic 70–105; PULSE 89–118; RESP 14–20; TEMP 36.7–37.7; O2SAT 91–98
[2019-06-14] MEDS: oxyCODONE 5 mg IR Tab/Cap PO ×3 (02:01→18:08)
[2019-06-14] MEDS: piperacillin-tazobactam 3.375 GM in sodium chloride 0.9% (plus) 50 ML IV ×2 (05:35→16:11)
[2019-06-14] MEDS: sodium chloride 0.9% 1,000 ML 75 ML IV (05:37)
--- NOTE | 2019-06-14 07:00 | XRR_ITS ---
PROCEDURE INFORMATION: Exam: XR Chest, 1 View Exam date and time: 06/14/2019 6:43 AM Age: 73 years old Clinical indication: Screening exam; Other screening; Patient HX: Possible aspiration TECHNIQUE: Imaging protocol: XR of the chest Views: 1 view. COMPARISON: CR XR chest 1V portable [id number] 06/13/2019 10:42 AM FINDINGS: Lungs: Interstitial prominence. No focal infiltrate. Pleural space: Unremarkable. No pleural effusion. No pneumothorax. Heart/Mediastinum: Unremarkable. No cardiomegaly. Bones/joints: Unremarkable. XR/XR chest 1V portable [id number] IMPRESSION: Interstitial prominence. No focal infiltrate.
[2019-06-14] MEDS: sennosides-docusate Tablet 1 TAB PO ×2 (08:00→18:08)
[2019-06-14] MEDS: aspirin 81 mg EC Tablet PO (08:00)
--- NOTE | 2019-06-14 08:35 | MR_ITS ---
WS: [id number] MRA ANGIOGRAPHY [place] HISTORY: MRA/MRV stroke protocol, COMPARISON: None available. TECHNIQUE: 3-D MR angiography is performed of the [place]. All images are reviewed including source images. Distal vertebral and basilar arteries are intact with no significant stenosis or plaque. Posterior ce rebral arteries are normal course and caliber. RIGHT posterior communicating artery is intact. LEFT p osterior communicating artery is probably hypoplastic or absent. Intracranial portion of the internal carotid arteries are normal course and caliber. Mild atheroscler osis within the distal internal carotid arteries and in the proximal middle cerebral arteries. No occ lusions. Mild atherosclerosis LEFT A1 segment with no occlusion. Anterior communicating artery is pat ent. MR/MR angio head wo con [id number] IMPRESSION: 1. No [place] aneurysm. 2. Atherosclerosis in the distal carotid, proximal middle cerebral and LEFT A1 segment. No occlusions.
--- NOTE | 2019-06-14 08:35 | MR_ITS ---
WS: [id number] MRI BRAIN WITHOUT CONTRAST HISTORY: stroke? COMPARISON: None available. TECHNIQUE: Diffusion imaging, multiplanar T1, T2 and FLAIR imaging obtained. No convincing evidence for an acute stroke. There are few scattered signal abnormalities on the diffu riddhi-weighted images with no definite corresponding abnormality on the ADC map. Severe white matter disease around the ventricles. Lacunar infarcts and chronic ischemic disease surr ounding the ventricles. At least moderate cerebral atrophy with mild enlargement of the ventricles and extra-axial spaces. No inferior displacement of cerebellar tonsils. The sella turcica and pituitary gland are unremarkabl e. Posterior fossa is also unremarkable. Dural venous sinuses and [place] demonstrate no abnormality on this unenhanced studies. Paranasal sinuses: Clear. Mastoid air cells: Normal. Calvarium and scalp: Intact. MR/MR head wo con* [id number] IMPRESSION: 1. No definite acute infarcts are identified. There is motion artifact causing some limitations. 2. Extensive periventricular chronic white matter ischemic disease and prior l acunar infarcts. 3. Moderate atrophy and mild ventriculomegaly.
[2019-06-14 10:55] LABS: Basophils # 0.1 10^3/uL (0.0-0.1); Basophils % 0.5 %; Eosinophils # 0.5 10^3/uL (0.0-0.8); Eosinophils % 4.4 %; Hematocrit 35.6 % (37.0-47.0); Hemoglobin 11.1 g/dL (11.5-15.3); Lymphocytes % 9.2 %; Mean Corpuscular HGB Conc 31.2 g/dL (30.0-36.0); Mean Corpuscular Hemoglobin 25.6 pg (28.0-34.0); Mean Platelet Volume 12.3 fL (7.4-10.4); Monocytes % 8.7 %; Neutrophils # 8.7 10^3/uL (1.8-7.7); Neutrophils % 76.8 %; Nucleated Red Blood Cells % 0 %; Platelet Count 148 10^3/cmm (130-400); Red Blood Count 4.34 10^6/uL (4.1-5.3); Red Cell Distribution Width 13.8 % (12.1-15.1); White Blood Count 11.3 10^3/uL (4.0-10.0)
[2019-06-14 11:11] LABS: Alanine Aminotransferase 31 U/L (0-33); Albumin Level 3.6 g/dL (3.5-5.2); Alkaline Phosphatase 70 IU/L (35-105); Anion Gap 14.6 (5-19); Aspartate Amino Transferase 37 U/L (0-32); Blood Urea Nitrogen 12 mg/dL (8-23); Calcium 8.9 mg/dL (8.5-10.5); Carbon Dioxide 22 mmol/L (22-29); Chloride 104 mmol/L (98-107); Globulin 3.3 g/dL (1.3-4.6); Glucose 116 mg/dL (74-106); Magnesium 1.8 mg/dL (1.7-2.3); Phosphorus 2.2 mg/dL (2.5-4.5); Potassium 3.6 mmol/L (3.5-5.1); Sodium 137 mmol/L (136-145); Total Bilirubin 0.9 mg/dL (0.15-1.2); Total Protein 6.9 g/dL (6.6-8.7)
--- NOTE | 2019-06-14 12:37 | PC.CHAP ---
Pastoral Care Encounter/Spiritual Assessment Type of Contact [] Declined cultural centre manager visit [] Patient/Family/Request visit [] Outpatient visit [] Follow-up visit [] Physician referral [] Code/Alert [] Routine visit [] Staff referral [] Actively dying [x] Patient sleeping [] Family support [] [] Out of room [] Palliative care [] [] Receiving care in room [] Pre-surgical visit [] Trauma [] Long length of stay [] ICU visit [ x] Other: Needs follow up visit. Relational/Emotional Strength [] Patient feels connected with others/family/visitors/staff [] Distress [] Loneliness/isolation [] Abandonment Spirituality of Patient [] Person of Lupis [] Attends Yazdanism of their Lupis [] Believes in Prayer [] Reads Bible or Adventist materials [] There are Spiritual issues to be addressed Production Mechanic Interventions [] Prayer [] Active listening [] Non-anxious presence [] Spiritual/emotional support [] Crisis/trauma care [] Spiritual counseling [] Bereavement support [] Provided bereavement packet [] Provided Bible/devotional materials [] Provided toy/stuffed animal, coloring book to patient or family member [] Completed spiritual assessment [] Provided Communion [] Anointing/[place] [] Salvation [] Other: Impact on Illness or Injury [] Angry [] Fearful [] Anxious [] Often cries [] Exhaustion [] Unable to work [] Unable to attend caodaism [] Unable to walk/stand [] Unable to read [] Unable to drive [] Unable to eat/drink [] Unable to sleep [] Unable to be with family [] Other: Summary Time spent with patient 5 min.
--- NOTE | 2019-06-14 12:57 | P.CONIM_ITS ---
Providers/Reason For Consult Consulting Physican/Specialty*: Leilani Khalil MD - Orthopedics Reason for Consult*: Right subcapital hip fracture Requesting Physcian: Dr. Guillory, Dr. Yousif Attending Physician: Rogelio Yousif MD History of Present Illness History of Present Illness Rochelle Grubbs is a 73 year old female who was admitted through the emergency department on June 12 with diagnosis of a urinary tract infection as well as possible CVA and right femoral neck fracture. The patient was admitted through the emergency department and Dr. Guillory from orthopedics was consulted. Reportedly, the patient resides at [facility], and she was found down after an apparent fall. The patient unfortunately has a history of significant multiple sclerosis and associated morbidities. According to her sister, she is weak on this right side and if she falls she tends to fall to that side. The patient was not cleared for surgery secondary to concern for CVA. She was to have an MRI yesterday, however, when she got over to the MRI scanner, she began to have significant emesis and she was returned to the floor. There is some concern she may have aspirated at that time as well. The patient continues to be followed by the medical service and I have now taken over consultation regarding appropriate care of her hip fracture. She is seen today with her sister in the room and discussion was undertaken with the sister regarding appropriate treatment of the hip fracture. The patient's sister had not met Dr. Guillory over the weekend. Questions were answered, and the patient's sister appears to understand the reasons and need for surgical intervention in the form of a bipolar hip arthroplasty. Review of Systems General: Reports: ROS unobtainable due to mental status (The patient was reportedly in her usual state of health, but she is not responsive to questioning today.) Meds/Allergies Home Medications and Allergies Home Medications Medication Instructions Recorded Confirmed Type [id number] fumarate-FA 1 tab PO DAILY 06/12/19 06/12/19 History [] acetaminophen [Tylenol] 650 mg PO QID PRN 06/12/19 06/12/19 History amoxicillin 250 mg PO TID 06/12/19 06/12/19 History cetirizine [Zyrtec] 10 mg PO DAILY 06/12/19 06/12/19 History ferrous sulfate 325 mg PO DAILY 06/12/19 06/12/19 History fluoxetine 15 mg PO DAILY 06/12/19 06/12/19 History guaifenesin 200 mg PO Q6H 06/12/19 06/12/19 History ondansetron HCl [Zofran] 4 mg PO Q6H PRN 06/12/19 06/12/19 History Allergies Allergy/AdvReac Type Severity Reaction Status Date / Time No Known Allergies Allergy Verified 06/12/19 21:59 Current Medications Current Medications Generic Name Dose Route Start Last Admin Trade Name Freq PRN Reason Stop Dose Admin Aspirin 81 mg 06/14/19 09:00 06/14/19 08:00 Aspirin Ec PO 81 mg DAILY [facility] Administration Atorvastatin Calcium 80 mg 06/13/19 21:00 06/13/19 21:08 Lipitor PO 80 mg BEDTIME [facility] Administration Piperacillin Sod/Tazobactam 50 mls @ 12.5 mls/hr 06/13/19 14:00 06/14/19 09:40 Sod 3.375 gm/ Sodium Chloride IV Infused Q8H [facility] Infusion Protocol Sodium Chloride 1,000 mls @ 75 mls/hr 06/13/19 15:15 06/14/19 05:37 Sodium Chloride 0.9% IV 75 mls/hr .[id number] [facility] Administration Morphine Sulfate 4 mg 06/13/19 00:52 06/13/19 10:08 Morphine IVP 4 mg Q4H PRN Administration SEVERE PAIN Ondansetron HCl 4 mg 06/13/19 00:52 06/13/19 10:07 Zofran IVP 4 mg Q6H PRN Administration NAUSEA AND VOMITING Oxycodone HCl 5 mg 06/13/19 04:27 06/14/19 11:44 Oxycodone Ir PO 5 mg Q6H PRN Administration MODERATE PAIN Senna/Docusate Sodium 1 tab 06/13/19 09:00 06/14/19 08:00 Senna-S PO 1 tab BID [facility] Administration PFSH Acute PFSH: Statuses (acute, chronic, etc) shown below reflect problem list status as previously entered and may not be historically accurate Medical History Anxiety (Acute) Dementia (Acute) Multiple sclerosis (Acute) UTI (urinary tract infection) (Acute) Surgical History No pertinent past surgical history (Acute) Family History Denies family history of CAD (coronary artery disease) Clotting disorder Chronic kidney disease (CKD) Cancer Social History Smoking and tobacco status: never smoked Alcohol intake: never Substance/Drug Use: never Housing: [facility] Vitals/I&O/Wt Last Vital Signs Temp 98.0 F 06/14/19 11:29 Pulse 110 H 06/14/19 11:29 Resp 20 H 06/14/19 11:44 BP 185/92 06/14/19 11:29 Pulse Ox 94 06/14/19 11:29 06/13/19 06/14/19 06/14/19 22:59 06:59 14:59 Intake Total 1501.25 / 1501.25 575.0 / 2076.25 160 / 160 Output Total 500 / 500 300 / 300 Balance 1501.25 / 1501.25 75.0 / 1576.25 -140 / -140 Weight last 48 hrs Weight 112 lb 12.8 oz Physical Exam Narrative: EXAM NARRATIVE: The patient is seen with her sister. She is minimally cooperative with questioning. She does maintain eye contact, but is nonverbal at the time of my evaluation. Const: COMMON NORMALS: no apparent distress and average body habitus GENERAL APPEARANCE: comfortable and frail appearing; not anxious and not combative HENMT: COMMON NORMALS: normocephalic and head/scalp atraumatic HEAD & SCALP: normocephalic and atraumatic Eye: GENERAL EYE: normal appearance of both eyes Lymph: LYMPHATIC: no lymphedema noted Chest: COMMONS NORMALS: inspection of chest normal Resp: COMMON NORMALS: normal respiratory effort EFFORT & INSPECTION: Yes symmetric chest movement Cardio: PERIPHERAL PULSES: posterior tibial pulses present and dorsalis pedis pulses present Extremity: RIGHT LOWER EXTREMITY: Yes hip joint Right hip: Yes inspection (There is no ecchymosis noted), Yes palpation (There is no tenderness to palpation about the hip), Yes ROM (Any range of motion is painful secondary to fracture.), Yes neurovascular exam (Pulses are 2+, sensation is unable to be evaluated. The patient is not cooperative with request for motor function.) and Yes other (The patient lays with her hip in a flexed internally rotated and abducted position. Staff notes this is been her preferred position since her fracture. Her sister denies that this is her normal position prior to the fracture.) Neuro: COMMON NORMALS: negative for gait normal SENSORIUM/ORIENTATION: Yes orientation impaired SPEECH: other (Patient will not verbally respond to questioning) GAIT: Yes unable to assess gait Psych: ATTITUDE: Yes calm and Yes withdrawn Skin: COMMON NORMALS: no rashes or lesions noted GENERAL SKIN EXAM: no rashes or lesions noted Urinary Catheter Management^: Schmitt: Cath Placed During This Visit: no Data Micro: Micro: Microbiology 06/12/19 22:13 Blood Culture - Pr eliminary Blood NEGATIVE TO YISEL E Imaging^: Pelvis: I personally reviewed and interpreted this imaging study as follows: (There is a displaced subcapital right hip fracture.) Radiologist's impression: Acute transverse fracture of the right femoral neck A&P Assessment and plan (1) Fracture of femoral neck, right: The patient has a documented right subcapital hip fracture with significant displacement. She will require operative intervention in the form of a bipolar hip arthroplasty. This was discussed with the patient sister who is present in the room and she understands. Unfortunately, her surgical intervention is delayed secondary to concern regarding a possible recent CVA. She has MRI pending. This study was canceled yesterday secondary to emesis at the time of attempted MRI. We will proceed with surgical intervention when appropriate and cleared by the medical service. Status: Acute Qualifiers: Encounter type: initial encounter Fracture type: closed Qualified Code(s): S72.001A - Fracture of unspecified part of neck of right femur, initial encounter for closed fracture Code(s): S72.001A - Fracture of unspecified part of neck of right femur, initial encounter for closed fracture Consult Attestations Medical Necessity Statement: Her medical service Coding Level of Care Code Acute Registered Nurse Float Pool for [employer] Exam Problem Focused Diagnoses Fracture of femoral neck, right S72.001A Encounter type: initial encounter Fracture type: closed
--- NOTE | 2019-06-14 14:54 | PC.NURSE ---
Patients sister Sonia here, she spoke with Dr. Khalil about surgery. This nurse took consent for surgery to patient's sister Sonia who said she did not want to sign the consent for surgery until she talked to the anesthesiologist and also called her son who is an anesthesiologist. Dr. Khalil and Dr. Yousif notified.
[2019-06-14] MEDS: labetalol 5 mg/mL SDV 20mL 20 MG IVP (16:09)
[2019-06-14 17:16] LABS: ABG PCO2 39.3 mmHg (35-45); ABG PH Result 7.41 (7.35-7.45); Arterial Blood Gas Hematocrit 34.2 % (37-47); Base Excess ABG 0.5 mmol/L (-2.0-2.0); Blood Gas Allen Test Pos; Blood Gas Sample Site Radial, left; Blood Gas Sample Type Arterial; HCO3 ABG 25.1 mmol/L (22-26); Oxygen Device NC; PO2 ABG 55.6 mmHg (80.0-100.0)
--- NOTE | 2019-06-14 18:50 | PM.PN ---
Subjective Subjective: Interval history: This morning patient was examined, no facial droop noted, can say a couple of words here and there, no slurring of her speech noted, can follow commands such as squeezing my fingers with her bilateral hands, does not really shrug her shoulders, can move her arms, can wiggle her feet, retracts her bilateral extremity from pain, is not moving her right lower extremity much after her fracture, at other times does not follow commands such as closing her eyes, or opening her mouth. Again patient is a full assist at the custodial, but can feed herself, can move upper extremities, can carry on conversations at times. Patient's sister states that at times as outpatient she is noticed that she has had slurring of her speech, and her right lower extremity is the most affected from her multiple sclerosis, she tends not to move it much. Patient sister is at bedside this afternoon, I discussed the case with her, I does discussed the following: -Patient had concerns for a stroke, with the slurring of her speech, right facial droop, although she has no slurring of her speech and right facial droop. However it is however hard to tease out stroke symptoms versus her multiple sclerosis symptoms, as patient has a poor functional status from MS, is not very vocal, and has chronic deficits related to her multiple sclerosis. But currently I do not see a facial droop or slurring of her speech. I went over patient's MRI and MRA MRV scan with Dr. Peoples, she states that it is highly unlikely patient had an acute stroke, she feels her symptoms are likely related to her chronic MS. -In terms of her respiratory status, patient is a chronic smoker, likely has undiagnosed COPD at baseline, on CT imaging for shows centrilobular emphysema and bronchiectasis. In addition she likely suffered an aspiration pneumonia and is likely chronically aspirating with some component of aspiration pneumonitis. Currently on 4 L oxygen, Zosyn, has been afebrile, no significant white blood cell count. -Patient's echocardiogram showed an ejection fraction 75%, no regional wall motion abnormalities, grade 1 out of [address]-T wave changes. Given all the above risks, patient is a moderate risk for a moderate risk surgery. I went over the risks and benefits of surgery, risks include significant morbidity and mortality, risks of chronic ventilation, risk of stroke, risk of RI. Patient's sister voiced understanding, all questions answered. Patient's sister is the power of title attorney, she states that she wants to talk to her son who is a anesthesiologist before making a decision to proceed to surgery, she hopes that her son can speak to the anesthesiologist who will evaluate patient preoperatively. Vitals/I&O/Wt Last Vital Signs Temp 98.7 F 06/14/19 16:00 Pulse 113 H 06/14/19 16:00 Resp 14 06/14/19 18:08 BP 204/105 06/14/19 16:00 Pulse Ox 91 06/14/19 16:00 06/14/19 06/14/19 06/14/19 06:59 14:59 22:59 Intake Total 575.0 / 2076.25 160 / 160 Output Total 500 / 500 300 / 300 Balance 75.0 / 1576.25 -140 / -140 Weight last 48 hrs Weight 51.165 kg Physical Exam Const: COMMON NORMALS: alert ORIENTATION/CONSCIOUSNESS: Yes oriented to person; not oriented to place and not oriented to time Eye: COMMON NORMALS: PERRL PUPIL: Yes PERRL OTHER: Unable to follow thorough extraocular exam Neck/C-Spine: COMMON NORMALS: no lymphadenopathy Lymph: LYMPHATIC: no lymphadenopathy noted Resp: COMMON NORMALS: normal respiratory effort, no retractions, no use of accessory muscles and clear to auscultation bilaterally AUSCULTATION: clear to auscultation bilaterally Cardio: COMMON NORMALS: regular rate, regular rhythm, S1 normal heart sound and S2 normal heart sound RATE: regular rate RHYTHM: regular rhythm HEART SOUNDS: S1 normal and S2 normal GI: COMMON NORMALS: normal to inspection, nondistended, normoactive bowel sounds, soft to palpation, non-tender and no hepatosplenomegaly PALPATION: Yes soft and Yes no hepatosplenomegaly Extremity: COMMON NORMALS: normal capillary refill, no clubbing, cyanosis or edema and no pedal edema Neuro: SENSORIUM/ORIENTATION: Yes alert, Yes oriented to person, No oriented to place, No oriented to time and Yes fluctuating sensorium CRANIAL NERVES: Yes other (Unable to cooperate with neurologic exam) COORDINATION/BALANCE: other (Unable to cooperate with neurologic exam) SPEECH: other (Able to say a few words here and there, no slurring of speech noted) SENSORY EXAM: Yes other (Unable to cooperate with neurologic exam) MOTOR EXAM: other (Upper extremities, strength at that has 5 out of 5 bilaterally, unable to follow examination for shoulder shrug) COORDINATION: other (Unable to cooperate with neurologic exam) OTHER: Able to wiggle her toes bilaterally, does withdraw from pain, does not follow examination of bilateral lower extremities Urinary Catheter Management^: Schmitt: Cath Placed During This Visit: no Data : 06/14/19 10:25 06/14/19 10:25 Micro: Microbiology 06/12/19 22:13 Blood Culture - Preliminary Blood NEGATIVE TO DATE A&P Assessment and plan (1) Fracture of femoral neck, right: -Patient is a moderate risk for a moderate risk surgery -Will need preoperative evaluation by anesthesiologist given her respiratory status -Patient's power of title attorney, sister, hopes that her son who is anesthesiologist can speak to our anesthesiologist who will evaluate her preoperatively -Continue telemetry monitoring -Dr. Khalil on consult Status: Acute Qualifiers: Encounter type: initial encounter Fracture type: closed Qualified Code(s): S72.001A - Fracture of unspecified part of neck of right femur, initial encounter for closed fracture Code(s): S72.001A - Fracture of unspecified part of neck of right femur, initial encounter for closed fracture (2) CVA (cerebral vascular accident): -No right facial droop today, no slurring of her speech, difficult to complete thorough neurologic exam as patient does not follow exam -No hemodynamically significant carotid artery stenosis -MRI of the brain shows no definite acute infarcts are identified. There is motion artifact causing some limitations. Extensive periventricular chronic white matter ischemic disease and prior lacunar infarcts -MRA/MRV shows Atherosclerosis in the distal carotid, proximal middle cerebral and LEFT A1 segment. No occlusions.No [place] aneurysm. -I discussed the above case and imaging with Dr. Peoples. Dr. Peoples believes that it is highly unlikely that the patient symptoms are related to a acute stroke, likely related to her underlying multiple sclerosis -Hold aspirin, continue statin for now -Will control blood pressure with Norvasc, lisinopril -PRN labetalol, Vasotec and hydralazine Status: Acute Code(s): I63.9 - Cerebral infarction, unspecified (3) Hypoxia: Acute respiratory failure, requiring up to 4 L of oxygen -Likely secondary to underlying COPD, aspiration pneumonia, and aspiration pneumonitis -I am concerned the patient is chronically aspirating secondary to her multiple sclerosis -Patient has a chronic history of smoking up to a year ago, CT Angio of the chest shows centrilobular emphysema and bronchiectasis thus likely patient has undiagnosed underlying COPD -I did discuss the risks of surgery with the patient's power of title attorney, she understands the risks of chronic respiratory failure, possibly requiring prolonged mechanical ventilation, possible tracheostomy, and risk of morbidity and mortality, she voiced understanding, all questions answered -Continue oxygen therapy -Continue Zosyn -Solu-Medrol -Patient will have preoperative evaluation anesthesiology Status: Acute Code(s): R09.02 - Hypoxemia (4) Hypertension: Status: Acute Code(s): I10 - Essential (primary) hypertension (5) UTI (urinary tract infection): Continue Zosyn Status: Acute Code(s): N39.0 - Urinary tract infection, site not specified Attestations Medical Necessity Statement*: Patient requires continued hospitalization, for right femoral neck fracture, acute respiratory failure, Coding Level of Care Code Acute [employer] Machine for [facility] Diagnoses Fracture of femoral neck, right S72.001A Encounter type: initial encounter Fracture type: closed CVA (cerebral vascular accident) I63.9 Hypoxia R09.02 Hypertension I10 UTI (urinary tract infection) N39.0
[2019-06-14] MEDS: amlodipine 10 mg Tablet PO (19:03)
[2019-06-14] MEDS: lisinopril 20 mg Tablet PO (19:04)
--- NOTE | 2019-06-14 20:44 | PC.RESP ---
pt sleeping no respiratory distress noted at this time
[2019-06-15] VITALS (21 sets, daily range): BP systolic 125–168; BP diastolic 55–87; PULSE 75–111; RESP 16–22; TEMP 36.2–37.3; O2SAT 92–99
[2019-06-15] MEDS: piperacillin-tazobactam 3.375 GM in sodium chloride 0.9% (plus) 50 ML IV ×2 (02:01→09:47)
[2019-06-15] MEDS: sodium chloride 0.9% 1,000 ML 75 ML IV ×2 (02:25→20:22)
[2019-06-15] MEDS: sennosides-docusate Tablet 1 TAB PO (08:15)
[2019-06-15] MEDS: amlodipine 10 mg Tablet PO (08:15)
[2019-06-15] MEDS: oxyCODONE 5 mg IR Tab/Cap PO ×3 (08:15→20:20)
[2019-06-15] MEDS: lisinopril 20 mg Tablet PO (08:15)
[2019-06-15 08:48] LABS: Basophils % 0.1 %; Hematocrit 33.3 % (37.0-47.0); Hemoglobin 10.5 g/dL (11.5-15.3); Lymphocytes # 0.6 10^3/uL (0.8-4.8); Lymphocytes % 5.1 %; Mean Corpuscular HGB Conc 31.5 g/dL (30.0-36.0); Mean Corpuscular Volume 82.4 fL (81-99); Mean Platelet Volume 12.9 fL (7.4-10.4); Monocytes # 0.4 10^3/uL (0.2-0.9); Monocytes % 3.2 %; Neutrophils % 91.1 %; Nucleated Red Blood Cells % 0 %; Platelet Count 140 10^3/cmm (130-400); Red Blood Count 4.04 10^6/uL (4.1-5.3); Red Cell Distribution Width 13.6 % (12.1-15.1); White Blood Count 12.1 10^3/uL (4.0-10.0)
[2019-06-15 09:04] LABS: Alanine Aminotransferase 27 U/L (0-33); Albumin Level 3.5 g/dL (3.5-5.2); Alkaline Phosphatase 65 IU/L (35-105); Anion Gap 17.1 (5-19); Aspartate Amino Transferase 30 U/L (0-32); Blood Urea Nitrogen 15 mg/dL (8-23); Carbon Dioxide 22 mmol/L (22-29); Chloride 103 mmol/L (98-107); Globulin 3.4 g/dL (1.3-4.6); Glucose 145 mg/dL (74-106); Potassium 4.1 mmol/L (3.5-5.1); Sodium 138 mmol/L (136-145); Total Bilirubin 0.4 mg/dL (0.15-1.2); Total Protein 6.9 g/dL (6.6-8.7)
--- NOTE | 2019-06-15 09:50 | XR_ITS ---
WS: [id number] Right shoulder, portable AP view, 06/15/2019 Clinical Data: R ARM/SHOULDER PAIN Comparison: None. Findings: No fractures or dislocations are seen. The AC joint is normal. The adjacent right clavicle, right sca pula and ribs are normal. The soft tissues are unremarkable. There is a monitor lead on the right chest wall XR/XR shoulder RT 1V [id number] Impression: Negative right shoulder.
[2019-06-15] MEDS: morphine 4 mg/mL SDV 1 mL IVP (10:22)
--- NOTE | 2019-06-15 12:18 | P.ANES_ITS ---
Pre-Anesthetic Assessment Pre-Anesthetic Assessment: Height/Weight: Height 1.65 m Weight 51.165 kg Temp Pulse Resp BP Pulse Ox 98.7 F 84 22 H 138/76 96 06/15/19 10:59 06/15/19 10:59 06/15/19 10:59 06/15/19 10:59 06/15/19 10:59 Preop Diagnosis: Right subcapital hip fracture Proposed Procedure: Operation Date: 06/15/19 16:00 Proposed Procedures p Hemiarthroplasty Hip(Right) - Leilani Khalil MD Last intake: Intake Last Liquid Date 06/13/19 Last Liquid Time 23:00 Last Solid Date 06/13/19 Last Solid Time 17:00 Social: Social History: No alcohol and No tobacco Exam: Pre-Anes Outpt Exam: alert, oriented x 3, clear to auscultation bila terally and regular rate & rhythm Airway: Submandibular: WNL Cervical ROM: WNL MP: 2 History/ROS: No significant history except as noted Pulmonary: Pulmonary: None reported CV/HEM: CV/HEM: HTN : : UTI Hepatic: Hepatic: None reported GI: GI: None reported Metabolic: Metabolic: Hyperlipidemia Musc/skel: Musc/skel: Weakness (gen) Neuropsych: Neuropsych: Dementia and Neuropathy (MS) Meds/Allergies Current Medications: Current Medications Generic Name Dose Route Start Last Admin Trade Name Freq PRN Reason Stop Dose Admin Amlodipine Besylat e 10 mg 06/14/19 18:40 06/15/19 08:15 Norvasc PO 10 mg DAILY [facility] Administration Aspirin 81 mg 06/14/19 09:00 06/14/19 08:00 Aspirin Ec PO 81 mg DAILY [facility] Administration Atorvastatin Calci um 80 mg 06/13/19 21:00 06/14/19 20:14 Lipitor PO Not Given BEDTIME [facility] Piperacillin Sod/T azobactam 50 mls @ 12.5 mls /hr 06/13/19 14:00 06/15/19 09:47 Sod 3.375 gm/ So dium Chloride IV 12.5 mls/hr Q8H [facility] Administration Protocol Sodium Chloride 1,000 mls @ 75 ml s/hr 06/13/19 15:15 06/15/19 08:20 Sodium Chloride 0.9% IV Not Given .[id number] [facility] Lisinopril 20 mg 06/14/19 18:50 06/15/19 08:15 Prinivil PO 20 mg BID [facility] Administration Methylprednisolone Sodium Succinate 40 mg 06/15/19 08:00 06/15/19 08:16 Solu-Medrol IVP 40 mg Q8H [facility] Administration Morphine Sulfate 4 mg 06/13/19 00:52 06/15/19 10:22 Morphine IVP 4 mg Q4H PRN Administration SEVERE PAIN Ondansetron HCl 4 mg 06/13/19 00:52 06/13/19 10:07 Zofran IVP 4 mg Q6H PRN Administration NAUSEA AND VOMITI NG Oxycodone HCl 5 mg 06/13/19 04:27 06/15/19 08:15 Oxycodone Ir PO 5 mg Q6H PRN Administration MODERATE PAIN Senna/Docusate Sod ium 1 tab 06/13/19 09:00 06/15/19 08:15 Senna-S PO 1 tab BID [facility] Administration PFSH Anesthesia PFSH: Medical History Anxiety (Acute) Dementia (Acute) Multiple sclerosis (Acute) UTI (urinary tract infection) (Acute) Surgical History No pertinent past surgical history (Acute) Family History Denies family history of CAD (coronary artery disease) Clotting disorder Chronic kidney disease (CKD) Cancer Social History Smoking and tobacco status: never smoked Alcohol intake: never Substance/Drug Use: never Housing: Detention Data Anesthesia CBC & Chem 7: 06/15/19 08:15 06/15/19 08:15 Other Labs: Laboratory Results - last 48 hr 06/14/19 06/14/19 06/14/19 10:25 10:25 15:03 WBC 11.3 H RBC 4.34 Hgb 11.1 L Hct 35.6 L MCV 82.0 MCH 25.6 L MCHC 31.2 RDW 13.8 Plt Count 148 MPV 12.3 H Neut % (Auto) 76.8 Lymph % (Auto) 9.2 [place] % (Auto) 8.7 Eos % (Auto) 4.4 Baso % (Auto) 0.5 Neut # (Auto) 8.7 H Lymph # (Auto) 1.0 [place] # (Auto) 1.0 H Eos # (Auto) 0.5 Baso # (Auto) 0.1 Nucleated RBC % (auto) 0 Nucleated RBCs # 0.0 Specimen Type Arterial Sample Site Radial, left ABG pH 7.41 ABG pCO2 39.3 ABG pO2 55.6 L ABG HCO3 25.1 ABG Base Excess 0.5 Jacob Test Pos Hematocrit 34.2 L O2 Delivery Device Nc O2 Liters/Min 2.0 Seismographer ID monro Sodium 137 Potassium 3.6 Chloride 104 Carbon Dioxide 22 Anion Gap 14.6 BUN 12 Creatinine 1.0 H Glucose 116 H Calcium 8.9 Phosphorus 2.2 L Magnesium 1.8 Total Bilirubin 0.9 AST 37 H ALT 31 Alkaline Phosphatase 70 Total Protein 6.9 Albumin 3.6 Globulin 3.3 Blood Type Antibody Screen 06/15/19 06/15/19 06/15/19 04:58 08:15 08:15 WBC 12.1 H RBC 4.04 L Hgb 10.5 L Hct 33.3 L MCV 82.4 MCH 26.0 L MCHC 31.5 RDW 13.6 Plt Count 140 MPV 12.9 H Neut % (Auto) 91.1 Lymph % (Auto) 5.1 [place] % (Auto) 3.2 Eos % (Auto) 0.0 Baso % (Auto) 0.1 Neut # (Auto) 11.0 H Lymph # (Auto) 0.6 L [place] # (Auto) 0.4 Eos # (Auto) 0.0 Baso # (Auto) 0.0 Nucleated RBC % (auto) 0 Nucleated RBCs # 0.0 Specimen Type Sample Site ABG pH ABG pCO2 ABG pO2 ABG HCO3 ABG Base Excess Jacob Test Hematocrit O2 Delivery Device O2 Liters/Min Seismographer ID Sodium 138 Potassium 4.1 Chloride 103 Carbon Dioxide 22 Anion Gap 17.1 BUN 15 Creatinine 1.0 H Glucose 145 H Calcium 9.0 Phosphorus Magnesium Total Bilirubin 0.4 AST 30 ALT 27 Alkaline Phosphatase 65 Total Protein 6.9 Albumin 3.5 Globulin 3.4 Blood Type A Positive Antibody Screen Negative Cardiac Studies: No Data to Display
--- NOTE | 2019-06-15 14:27 | PC.SOCIAL ---
IMM not given Attempted to given pg 2 of IMM, patient is in surgery at this time. Will need to attempt again later.
[2019-06-15] MEDS: sodium chloride 0.9% 1,000 ML 30 ML IV (14:36)
--- NOTE | 2019-06-15 16:25 | PM.PN ---
Subjective Subjective: Interval history: Patient's sister has agreed to sign consents for her as her DPOA Medications: Reviewed: Yes Vitals/I&O/Wt Last Vital Signs Temp 98.9 F 06/15/19 14:27 Pulse 111 H 06/15/19 14:27 Resp 20 H 06/15/19 14:27 BP 168/87 06/15/19 14:27 Pulse Ox 92 06/15/19 14:27 06/15/19 06/15/19 06/15/19 06:59 14:59 22:59 Intake Total 216.25 / 1335.00 Output Total 500 / 800 Balance -283.75 / 535.00 Physical Exam Narrative: EXAM NARRATIVE: The patient is much more alert today. She is ready for her surgical intervention. Her lungs are clear. She appears more awake. She is in agreement with the surgery as is her sister and their family. Urinary Catheter Management^: Schmitt: Cath Placed During This Visit: no Data : 06/15/19 08:15 06/15/19 08:15 A&P Assessment and plan (1) Fracture of femoral neck, right: The patient has a documented right subcapital hip fracture with significant displacement. She will require operative intervention in the form of a bipolar hip arthroplasty. This was discussed with the patient's sister who is present today and the family agrees. Her MRI has been negative. She is more alert and prepared for surgery today. Status: Acute Qualifiers: Encounter type: initial encounter Fracture type: closed Qualified Code(s): S72.001A - Fracture of unspecified part of neck of right femur, initial encounter for closed fracture Code(s): S72.001A - Fracture of unspecified part of neck of right femur, initial encounter for closed fracture Attestations Medical Necessity Statement*: Per hospitalist service Coding Level of Care Code Acute Fire Department Marine Engineer for [facility] Diagnoses Fracture of femoral neck, right S72.001A Encounter type: initial encounter Fracture type: closed
--- NOTE | 2019-06-15 16:27 | P.PN_ITS ---
Subjective Subjective: Interval history: This morning patient is looking much more alert, awake, is sitting up and smiling at me, she states that she is doing fine, moving all her upper extremities, no slurring of her words, no facial droop, her oxygen saturations in the high 90s now on 2 L, denies cough, denies shortness of breath Patient sister is at bedside, speaking to anesthesiologist about pending surgery Vitals/I&O/Wt Last Vital Signs Temp 98.9 F 06/15/19 14:27 Pulse 111 H 06/15/19 14:27 Resp 20 H 06/15/19 14:27 BP 168/87 06/15/19 14:27 Pulse Ox 92 06/15/19 14:27 06/15/19 06/15/19 06/15/19 06:59 14:59 22:59 Intake Total 216.25 / 1335.00 Output Total 500 / 800 Balance -283.75 / 535.00 Physical Exam Const: COMMON NORMALS: no apparent distress, oriented x3 and alert ORIENTATION/CONSCIOUSNESS: Yes oriented to person; not oriented to place and not oriented to time HENMT: COMMON NORMALS: normocephalic HEAD & SCALP: normocephalic Eye: COMMON NORMALS: PERRL PUPIL: Yes PERRL OTHER: Unable to follow th orough extraocular exam Neck/C-Spine: COMMON NORMALS: no JVD Lymph: LYMPHATIC: no lymphadenopathy noted Resp: COMMON NORMALS: normal respiratory effort, no retractions, no use of accessory muscles and clear to auscultation bilaterally AUSCULTATION: clear to auscultation bilaterally Cardio: COMMON NORMALS: no JVD, regular rate, regular rhythm, S1 normal heart sound and S2 normal heart sound RATE: regular rate RHYTHM: regular rhythm HEART SOUNDS: S1 normal and S2 normal GI: COMMON NORMALS: normal to inspection, nondistended, normoactive bowel sounds, soft to palpation, non-tender, no hepatosplenomegaly, no masses and no bruits PALPATION: Yes soft and Yes no hepatosplenomegaly Extremity: COMMON NORMALS: normal capillary refill, no clubbing, cyanosis or edema, no calf tenderness and no pedal edema Neuro: COMMON NORMALS: oriented x3 SENSORIUM/ORIENTATION: Yes alert, Yes oriented to person, No oriented to place and No oriented to time COORDINATION/BALANCE: other (Unable to cooperate with neurologic exam) SPEECH: other (Able to say a few words here and there, no slurring of speech noted) MOTOR EXAM: other (Upper extremities, strength at that has 5 out of 5 bilaterally, unable to follow examination for shoulder shrug) COORDINATION: other (Unable to cooperate with neurologic exam) OTHER: Moves upper extremities spontaneously Is able to withdraw lower extremities from pain this morning patient is able to smile, close her eyes, follow more commands Psych: COMMON NORMALS: mental status grossly normal Urinary Catheter Management^: Schmitt: Cath Placed During This Visit: no Data : 06/15/19 08:15 06/15/19 08:15 A&P Assessment and plan (1) Fracture of femoral neck, right: -Patient is a moderate risk for a moderate risk surgery -Will need preoperative evaluation by anesthesiologist given her respiratory status -Patient's power of disability attorney, sister, hopes that her son who is anesthesiologist can speak to our anesthesiologist who will evaluate her preoperatively -Continue telemetry monitoring -Dr. Khalil on consult Status: Acute Qualifiers: Encounter type: initial encounter Fracture type: closed Qualified Code(s): S72.001A - Fracture of unspecified part of neck of right femur, initial encounter for closed fracture Code(s): S72.001A - Fracture of unspecified part of neck of right femur, initial enc ounter for closed fracture (2) CVA (cerebral vascular accident): -No right facial droop today, no slurring of her speech, difficult to complete thorough neurologic exam as patient does not follow exam -No hemodynamically significant carotid artery stenosis -MRI of the brain shows no definite acute infarcts are identified. There is motion artifact causing some limitations. Extensive periventricular chronic white matter ischemic disease and prior lacunar infarcts -MRA/MRV shows Atherosclerosis in the distal carotid, proximal middle cerebral and LEFT A1 segment. No occlusions.No [place] of [place] aneurysm. -I discussed the above case and imaging with Dr. Peoples. Dr. Peoples believes that it is highly unlikely that the patient symptoms are related to a acute stroke, likely related to her underlying multiple sclerosis -Hold aspirin, continue statin for now -Will control blood pressure with Norvasc, lisinopril -PRN labetalol, Vasotec and hydralazine Status: Acute Code(s): I63.9 - Cerebral infarction, unspecified (3) Hypoxia: Acute respiratory failure, requiring up to 4 L of oxygen -Likely secondary to underlying COPD, aspiration pneumonia, and aspiration pneumonitis -I am concerned the patient is chronically aspirating secondary to her multiple sclerosis -Patient has a chronic history of smoking up to a year ago, CT Angio of the chest shows centrilobular emphysema and bronchiectasis thus likely patient has undiagnosed underlying COPD -I did discuss the risks of surgery with the patient's power of disability attorney, she understands the risks of chronic respiratory failure, possibly requiring prolonged mechanical ventilation, possible tracheostomy, and risk of morbidity and mortality, she voiced understanding, all questions answered -Continue oxygen therapy -Continue Zosyn -Solu-Medrol -Patient will have preoperative evaluation anesthesiology Status: Acute Code(s): R09.02 - Hypoxemia (4) Hypertension: Status: Acute Code(s): I10 - Essential (primary) hypertension (5) UTI (urinary tract infection): Continue Zosyn Status: Acute Code(s): N39.0 - Urinary tract infection, site not specified Additional A&P Information Patient is DNR/DNI SCDs for DVT prophylaxis Attestations Medical Necessity Statement*: requires countinued hospitalization for fracture, and respiratory distress Coding Level of Care Code 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
--- NOTE | 2019-06-15 16:28 | PM.OP ---
Operative Report Date of procedure: 06/15/19 Pre-op Diagnosis: Right subcapital hip fracture Post-op diagnosis: same Post-op Findings: Displaced subcapital hip fracture Procedure Done: Right bipolar hip arthroplasty utilizing the Halina bipolar hip system with a Accolade II 127 degree neck angle hip stem size 6 with a 35 mm neck length, a 45 mm outer by 26 mm inner diameter universal bipolar head component and a 26 mm +0 femoral head Specimens removed/disposition: Femoral head, disposed of Pathology: none sent Surgeon: Leilani Khalil Back Hanger: [facility] OR technicians Anesthesia: General (Intubated) Estimated blood loss (mL): 100 IV fluids (mL): 800 Urine output (mL): 400 Complications: None Findings: The patient's hip was stable to 90 degrees of flexion with 70 degrees of internal rotation and 30 degrees of adduction following prosthetic placement. It was also stable to external rotation and it was stable to toe hang. Condition: stable Disposition: floor Brief History: This 73-year-old woman who is a resident of [facility] presented to the emergency department following a fall. She was diagnosed with a displaced subcapital hip fracture. There was some concern that she had a stroke, and therefore, an MRI was required prior to proceeding with surgical intervention. Risks and complications of the surgery were discussed with the patient and her sister who has D POA. Plans are made to proceed with the surgical intervention. Procedure: The patient was brought to the operating theater, and after undergoing adequate general anesthesia was transferred to the operating room table. The patient was placed in the full lateral position and held in place with the pegboard. Patient's right lower extremity was draped free and was subsequently prepped and further draped free. A surgical pause was performed prior to commencement of the surgical procedure. During the surgical pause, we confirmed the site and side of surgery as well as availability of equipment and administration of preoperative prophylactic antibiotics. Additionally, we confirmed preoperative surgical markings. X-rays are also reviewed during this time. Following the surgical pause, an incision was made centering over the greater trochanter continuing proximally and distally as necessary to allow access to the hip joint. Dissection continues to skin and soft tissue using scalpel. Incision was obtained using electrocautery. Tensor fascia clara was identified and incised longitudinally. Sciatic nerve was identified and protected throughout the surgical procedure. A [place]arn[place] U retractor was placed with care being taken to protect the sciatic nerve during placement. The hip was internally rotated. Piriformis muscle was then identified, tagged, and subsequently incised from the posterior aspect of the hip joint. The remaining short external rotators were also incised. These were then elevated off the capsule and the capsule was entered in a T-type fashion. Each side of the capsule was then tagged. The proximal femur was brought into an appropriate position of the femoral neck osteotomy was accomplished. This was in appropriate position for placement of the prosthetic component. Femoral head was then removed from the acetabulum utilizing a corkscrew. It was subsequently measured. The appropriate size trial was chosen. This was a size 45 mm. Size 45 mm trial fit nicely. A 46 mm was also trialed but seemed to large. Therefore size 45 mm universal bipolar head was the chosen size for final implantation. Femoral [employer] certified network associate was then placed and attention was directed to the proximal femur. Initially, the proximal femur was addressed with a box chisel, and this was followed by a canal finder and subsequently broaches. The hip was broached to a size 6 Accolade II. Size 6 broach was noted to fit nicely and have good fit and fill. Therefore this was to be the chosen component. Trial reduction was accomplished with a 45 mm outer diameter by 26 mm inner diameter bipolar cup shell and a +0 mm x 26 mm femoral head. With this, the above-noted stabilities were accomplished. This was felt to be appropriate and therefore trial components were removed and the hip was irrigated. Acetabulum was evaluated for any loose bodies or other soft tissues requiring resection. We then prepared for implantation. The size 6 Accolade II 127 degree neck angle hip stem was impacted into position. This was placed without difficulty. Onto this was placed the construct of the 45 mm outer diameter bipolar cup with a 26 mm inner diameter, and the 26 mm diameter +0 mm neck length femoral head. This was placed onto the trunnion of the femoral component. It was impacted into position and pulled upon to assure that there was no dissociation. Once again the hip was irrigated and suctioned dry and was reduced. We then irrigated the hip further with 20 mL of Betadine mixed into 500 mL of normal saline. This was allowed to remain in the wound for approximately 3 minutes. It was then suctioned dry and irrigated with normal saline. This was suctioned dry again and closure was accomplished with 0 Vicryl in the capsular tissues followed by reattachment of the piriformis with 0 Vicryl. Additionally, the tensor was closed with 0 Vicryl in an interrupted fashion. Subcutaneous tissues were closed with 2-0 Monocryl. Skin was closed with 3-0 Monocryl. This was followed by Exofin and Steri-Strips. A sterile dressing was placed consisting of Telfa and Tegaderm. The patient was returned the intensive care unit as planned preoperatively in satisfactory condition. There were no complications. The patient will be discharged to the floor when appropriate for postoperative rehabilitation and pain management.
--- NOTE | 2019-06-15 18:04 | XR_ITS ---
WS: [id number] PELVIS TECHNIQUE: 1 view(s) of the pelvis CLINICAL INFORMATION: Postop COMPARISON: None. FINDINGS: Right LEXIE. Osteopenia. Moderate degenerative arthritis left hip. No acute fractures. XR/XR pelvis 1-2V* 36050 IMPRESSION: Satisfactory early postoperative right LEXIE.
--- NOTE | 2019-06-15 18:36 | SUR.PHASEI ---
182 PT TO PACU SLEEPY WITH ORAL AIRWAY IN , AWAKES ORAL AIRWAY OUT PT QUICKLLY BACK TO SLEEP VSS RT HIP DRESSING D/I, GOOD RESP NOTED BILAT SCDS ON B[place]A WITH STAt lock to lt thigh YELLOW URINE NOTED TO TUBING.
--- NOTE | 2019-06-15 18:37 | ANE.PACU ---
 Inpatient post-anesthesia follow up: Airway intact: Yes Vital signs: Temperature 97.7 F Pulse Rate [Bilate ral Radial] 96 Pulse Rate [Monito r] 88 Pulse Rate 84 Respiratory Rate 18 Blood Pressure [Ri ght Arm] 150/72 Blood Pressure 138/76 Pulse Oximetry 95 Oxygen Delivery Me thod [ Nasal Cannula Current Rate & Del megha] Oxygen Delivery Me thod Nasal Cannula Oxygen Flow Rate [ Current Rate 4 & Delivery] Oxygen Flow Rate 3 Fraction of Inspir ed Oxygen Hydration adequate: Yes Nausea and vomiting: No Pain level: 2 Mental status: Baseline
--- NOTE | 2019-06-15 19:10 | SUR.PHASEI ---
1900 PT TO FLOOR FAMILY IN ROOM PT ALERT LOOKS AT FAMILY PULLS COVER UP , DOES NOT VERBALIZE BUT FOLLOWS COMMAND AND LOOKS AT SPEAKER, PT ORIENTED TO NAME ONLY, RT HIP DRESSING D/I, BP 150/79, HR 95, RESP 18 SATS ON 3LNC 96%
[2019-06-15] MEDS: atorvastatin 40 mg Tablet 80 MG PO (20:20)
[2019-06-15] MEDS: chlorhexidine gluconate 0.12% Btl 473 mL 30 ML MUCOUS MEM (20:22)
[2019-06-15] MEDS: CELEcoxib 200 mg Capsule PO (20:22)
[2019-06-16] VITALS (16 sets, daily range): BP systolic 128–180; BP diastolic 66–80; PULSE 73–104; RESP 12–20; TEMP 36.3–36.9; O2SAT 87–97
[2019-06-16] MEDS: piperacillin-tazobactam 3.375 GM in sodium chloride 0.9% (plus) 50 ML IV ×3 (03:14→19:34)
[2019-06-16] MEDS: oxyCODONE 5 mg IR Tab/Cap PO ×3 (03:16→23:39)
[2019-06-16 04:00] LABS: Basophils % 0.1 %; Hemoglobin 9.9 g/dL (11.5-15.3); Lymphocytes # 0.5 10^3/uL (0.8-4.8); Lymphocytes % 3.6 %; Mean Corpuscular HGB Conc 30.9 g/dL (30.0-36.0); Mean Corpuscular Hemoglobin 25.5 pg (28.0-34.0); Mean Corpuscular Volume 82.5 fL (81-99); Mean Platelet Volume 13.2 fL (7.4-10.4); Monocytes # 0.6 10^3/uL (0.2-0.9); Neutrophils # 12.7 10^3/uL (1.8-7.7); Neutrophils % 91.6 %; Nucleated Red Blood Cells % 0 %; Platelet Count 150 10^3/cmm (130-400); Positive M 1; Red Blood Count 3.88 10^6/uL (4.1-5.3); Red Cell Distribution Width 13.8 % (12.1-15.1); White Blood Count 13.8 10^3/uL (4.0-10.0)
[2019-06-16 04:18] LABS: Alanine Aminotransferase 25 U/L (0-33); Albumin Level 2.9 g/dL (3.5-5.2); Alkaline Phosphatase 61 IU/L (35-105); Anion Gap 14.4 (5-19); Aspartate Amino Transferase 35 U/L (0-32); Blood Urea Nitrogen 16 mg/dL (8-23); Calcium 8.7 mg/dL (8.5-10.5); Carbon Dioxide 23 mmol/L (22-29); Chloride 107 mmol/L (98-107); Globulin 3.7 g/dL (1.3-4.6); Glucose 165 mg/dL (74-106); Magnesium 1.9 mg/dL (1.7-2.3); Phosphorus 2.7 mg/dL (2.5-4.5); Potassium 3.4 mmol/L (3.5-5.1); Sodium 141 mmol/L (136-145); Total Bilirubin 0.3 mg/dL (0.15-1.2); Total Protein 6.6 g/dL (6.6-8.7)
[2019-06-16] MEDS: calcium carbonate 500 mg Chew Tablet 1000 MG PO ×2 (08:49→18:37)
[2019-06-16] MEDS: sennosides-docusate Tablet 2 TAB PO ×2 (08:50→17:24)
[2019-06-16] MEDS: aspirin 325 mg EC Tablet PO (08:50)
[2019-06-16] MEDS: lisinopril 20 mg Tablet PO ×2 (08:50→17:24)
[2019-06-16] MEDS: amlodipine 10 mg Tablet PO (08:51)
[2019-06-16] MEDS: iron polysaccharide complex 150 mg Capsule PO ×2 (08:51→17:25)
[2019-06-16] MEDS: multivitamin therapeutic Tablet 1 TAB PO (08:51)
[2019-06-16] MEDS: cholecalciferol (vitamin D3) 1,000 unit Tablet 1000 UNIT PO (08:51)
[2019-06-16] MEDS: sodium chloride 0.9% 1,000 ML 75 ML IV ×2 (08:57→23:17)
[2019-06-16] MEDS: chlorhexidine gluconate 0.12% Btl 473 mL 30 ML MUCOUS MEM ×4 (09:02→21:08)
[2019-06-16 10:25] LABS: Procalcitonin 0.18 ng/mL (0-0.5)
--- NOTE | 2019-06-16 15:14 | PC.SOCIAL ---
Pg 2 of IMM Pg 2 of IMM was explained to patient and her sister, patient requested for her sister to sign the form. Copy was provided and form placed in chart. They verbalized understanding and had no questions.
--- NOTE | 2019-06-16 17:54 | P.PN_ITS ---
Subjective Subjective: Interval history: Patient is seen in her room. She is sitting up in a chair. She has had some difficulty with physical therapy secondary to her multiple sclerosis. The plan is that she will return to her normal care facility following this hospitalization. Vitals/I&O/Wt Last Vital Signs Temp 98.0 F 06/16/19 15:09 Pulse 92 06/16/19 15:09 Resp 18 06/16/19 15:09 BP 159/80 06/16/19 16:21 Pulse Ox 96 06/16/19 15:09 06/16/19 06/16/19 06/16/19 06:59 14:59 22:59 Intake Total 805.833 / 3315.833 722.917 / 722.917 Output Total 360 / 1260 Balance 445.833 / 2055.833 722.917 / 722.917 Physical Exam Narrative: EXAM NARRATIVE: Patient's wound is benign. There is no significant swelling about the thigh, erythema, or evidence of infection. There is no drainage. The calf is soft and nontender. Urinary Catheter Management^: Schmitt: Cath Placed During This Visit: no Data : 06/16/19 03:10 06/16/19 03:10 A&P Assessment and plan (1) History of hemiarthroplasty of right hip: Patient underwent right hip hemiarthroplasty and is doing well following this. She is working with physical therapy. When she is medically stabilized, the plan will be that she return to her nursing facility. This is where she resides routinely secondary to her MS and issues associated with this. Status: Acute Code(s): Z96.641 - Presence of right artificial hip joint (2) Fracture of femoral neck, right: This has resolved with hemiarthroplasty from which the patient is doing well. 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
[2019-06-16] MEDS: CELEcoxib 200 mg Capsule PO (18:37)
--- NOTE | 2019-06-16 21:02 | P.PN_ITS ---
Subjective Subjective: Interval history: Seen at ~3:45 pm this afternoon. No new complaints. Pain is currently well controlled. Medications: Reviewed: Yes Vitals/I&O/Wt Last Vital Signs Temp 98.2 F 06/16/19 20:00 Pulse 73 06/16/19 20:00 Resp 17 06/16/19 20:00 BP 150/69 06/16/19 20:00 Pulse Ox 97 06/16/19 20:00 06/16/19 06/16/19 06/16/19 06:59 14:59 22:59 Intake Total 805.833 / 3315.833 722.917 / 722.917 530 / 1252.917 Output Total 360 / 1260 Balance 445.833 / 2055.833 722.917 / 722.917 530 / 1252.917 Physical Exam Narrative: EXAM NARRATIVE: GEN: Awake, alert , no acute distress , lying comfortably in bed CVS: S1S2 N RS: CTA B/L anteriorly Abd: Soft, nt/nd , bs+ EXT: surgical site appears to be healing well, ,no swelling, warmth or tenderness Urinary Catheter Management^: Schmitt: Cath Placed During This Visit: no Data : 06/16/19 03:10 06/16/19 03:10 A&P Assessment and plan (1) Fracture of femoral neck, right: s/p R bipolar hemiarthroplasty on 06/15/19. Post op pain well controlled Status: Resolved Qualifiers: Encounter type: initial encounter Fracture type: closed Qualified Code(s): S72.001A - Fracture of unspecified part of neck of right femur, initial encounter for closed fracture Code(s): S72.001A - Fracture of unspecified part of neck of right femur, initial encounter for closed fracture (2) CVA (cerebral vascular accident): -No right facial droop today, no slurring of her speech, difficult to complete thorough neurologic exam as patient does not follow exam -No hemodynamically significant carotid artery stenosis -MRI of the brain shows no definite acute infarcts are identified. There is motion artifact causing some limitations. Extensive periventricular chronic white matter ischemic disease and prior lacunar infarcts -MRA/MRV shows Atherosclerosis in the distal carotid, proximal middle cerebral and LEFT A1 segment. No occlusions.No [place] of Val[place] aneurysm. -above case and imaging discussed with Dr. Peoples. Dr. Peoples believes that it is highly unlikely that the patient symptoms are related to a acute st roke, likely related to her underlying multiple sclerosis -Hold aspirin, continue statin for now -Will control blood pressure with Norvasc, lisinopril -PRN labetalol, Vasotec and hydralazine Status: Acute Code(s): I63.9 - Cerebral infarction, unspecified (3) Hypoxia: Acute respiratory failure, requiring up to 4 L of oxygen -Likely secondary to underlying COPD, aspiration pneumonia, and aspiration pneumonitis -Patient has a chronic history of smoking up to a year ago, CT Angio of the chest shows centrilobular emphysema and bronchiectasis thus likely patient has undiagnosed underlying COPD -Continue oxygen therapy -Continue Zosyn which is adequate coverage for periop period as well -Solu-Medrol Status: Acute Code(s): R09.02 - Hypoxemia (4) Hypertension: Status: Acute Code(s): I10 - Essential (primary) hypertension (5) UTI (urinary tract infection): Continue Zosyn Status: Acute Code(s): N39.0 - Urinary tract infection, site not specified Additional A&P Information Patient is DNR/DNI SCDs for DVT prophylaxis likely discharge to SNF tomorrow Attestations Medical Necessity Statement*: post op monitoring after R hip surgery after complicated admission, likely discharge to SNF tomorrow Coding Level of Care Code 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
[2019-06-16] MEDS: atorvastatin 40 mg Tablet 80 MG PO (21:05)
[2019-06-17] VITALS (7 sets, daily range): BP systolic 151–156; BP diastolic 74–78; PULSE 80–102; RESP 15–18; TEMP 36.5–37.1; O2SAT 94–97
[2019-06-17] MEDS: piperacillin-tazobactam 3.375 GM in sodium chloride 0.9% (plus) 50 ML IV ×2 (03:53→11:32)
[2019-06-17 05:56] LABS: Basophils % 0.1 %; Eosinophils % 0.1 %; Hematocrit 29.4 % (37.0-47.0); Hemoglobin 9.3 g/dL (11.5-15.3); Lymphocytes # 0.6 10^3/uL (0.8-4.8); Lymphocytes % 4.6 %; Mean Corpuscular HGB Conc 31.6 g/dL (30.0-36.0); Mean Corpuscular Hemoglobin 25.7 pg (28.0-34.0); Mean Corpuscular Volume 81.2 fL (81-99); Monocytes # 0.7 10^3/uL (0.2-0.9); Monocytes % 4.9 %; Neutrophils # 12.1 10^3/uL (1.8-7.7); Neutrophils % 89.8 %; Nucleated Red Blood Cells % 0 %; Platelet Count 179 10^3/cmm (130-400); Red Blood Count 3.62 10^6/uL (4.1-5.3); Red Cell Distribution Width 13.8 % (12.1-15.1); White Blood Count 13.5 10^3/uL (4.0-10.0)
[2019-06-17] MEDS: CELEcoxib 200 mg Capsule PO (06:08)
[2019-06-17 06:12] LABS: Alanine Aminotransferase 11 U/L (0-33); Albumin Level 2.7 g/dL (3.5-5.2); Alkaline Phosphatase 56 IU/L (35-105); Anion Gap 14.7 (5-19); Aspartate Amino Transferase 30 U/L (0-32); Blood Urea Nitrogen 19 mg/dL (8-23); Calcium 8.8 mg/dL (8.5-10.5); Carbon Dioxide 23 mmol/L (22-29); Chloride 109 mmol/L (98-107); Globulin 3.3 g/dL (1.3-4.6); Glucose 143 mg/dL (74-106); Phosphorus 1.9 mg/dL (2.5-4.5); Potassium 3.7 mmol/L (3.5-5.1); Sodium 143 mmol/L (136-145); Total Bilirubin 0.3 mg/dL (0.15-1.2)
[2019-06-17 06:41] LABS: Procalcitonin 0.14 ng/mL (0-0.5)
[2019-06-17] MEDS: iron polysaccharide complex 150 mg Capsule PO (07:57)
[2019-06-17] MEDS: calcium carbonate 500 mg Chew Tablet 1000 MG PO (09:47)
[2019-06-17] MEDS: amlodipine 10 mg Tablet PO (09:47)
[2019-06-17] MEDS: cholecalciferol (vitamin D3) 1,000 unit Tablet 1000 UNIT PO (09:47)
[2019-06-17] MEDS: lisinopril 20 mg Tablet PO (09:47)
[2019-06-17] MEDS: aspirin 325 mg EC Tablet PO (09:47)
[2019-06-17] MEDS: sennosides-docusate Tablet 2 TAB PO (09:47)
[2019-06-17] MEDS: multivitamin therapeutic Tablet 1 TAB PO (09:47)
[2019-06-17] MEDS: chlorhexidine gluconate 0.12% Btl 473 mL 30 ML MUCOUS MEM ×2 (09:48→12:11)
[2019-06-17] MEDS: sodium chloride 0.9% 1,000 ML 75 ML IV (12:10)
[2019-06-17] MEDS: TRAMadol 50 mg Tablet PO (14:05)
--- NOTE | 2019-06-17 14:49 | PC.NURSE ---
REPORT CALLED REPORT TO HOLLAND FISCHER LPN AT [facility].
--- NOTE | 2019-06-17 14:57 | P.DS_ITS ---
Discharge Providers Date of Admission: 06/12/19 23:18 Date of Discharge: 06/17/19 Attending Provider at Admission: Cong Millard MD Attending Provider at Discharge: Randi Toth MD Diagnoses at Discharge Discharge Diagnosis (1) Fracture of femoral neck, right: Status: Resolved Qualifiers: Encounter type: initial encounter Fracture type: closed Qualified Code(s): S72.001A - Fracture of unspecified part of neck of right femur, initial encounter for closed fracture (2) CVA (cerebral vascular accident): Status: Acute (3) Hypoxia: Status: Acute (4) Hypertension: Status: Acute (5) UTI (urinary tract infection): Status: Acute Reason for Visit Reason for Visit: Reason For Visit: RIGHT FEMORAL NECK FRACTURE Hospital Course Discharge Summary: Rochelle Grubbs is a 73 year old female carries diagnosis of multiple sclerosis, wheelchair-bound, the past medical history was sent from her senior care [facility] for right leg pain. Patient is not a reliable historian, she is stating that she went to bathroom and fell. Her blood pressure was high, she is not on any antihypertensives, she is on mechanically soft diet for dysphagia, she uses wheelchair for ambulation, she has had multiple falls in the past due to her multiple sclerosis and generalized leg weakness. Her speech is slow at baseline, with cognitive impairment. Diagnostics in ER showed femoral neck fracture, hypertension, hypoxia initially to 90% on room air and currently doing well on 2 L, tachycardic. There was no evidence on a CTA chest background of emphysema and bronchiectasis was noted. CT of the head was negative for any acute intracranial findings. Stroke code was called overnight on the day of admission with NIH score of 4 for a right facial droop, mild slurred speech and sensory deficit. It was unclear if these changes are indeed acute or more related to her underlying multiple sclerosis. Stroke team was consulted who recommended MRI before surgery. She was not deemed to be a candidate for TPA. While undergoing MRI on 06/13 patient had an episode of vomiting and possibly aspirated. She is being treated with Zosyn while as an inpatient for the aspiration pneumonia. She was requiring 4 L of oxygen on nasal cannula. Some degree of COPD exacerbation may have been contributing for which she received a short course of IV steroids. She eventually underwent an MRI on 06/14 which did not identify any acute stroke. There was extensive periventricular chronic white matter ischemic disease and prior lacunar infarcts. MRA of the brain did not show any aneurysms. Atherosclerosis was noted in the distal carotid arteries and proximal middle cerebral artery. There was no mention of occlusions. These results were discussed with neurologist Dr. Peoples and it was felt that her symptoms are less likely related to an acute stroke and more in line with her chronic MS. Her echocardiogram showed an ejection fraction of 75% without regional wall motion abnormalities and no significant ST-T wave changes on EKG. Given all of these above risks patient was deemed to be a moderate risk for moderate risk surgery. She eventually underwent a bipolar hip arthroplasty for her fractured femur on 06/15.. Patient has tolerated the procedure well. There are no immediate postop complications. Hospital course has been noted for events noted above, aspiration pneumonia, COPD exacerbation and hypertension for which she has been initiated on new medications amlodipine and lisinopril. Physical Exam Narrative: EXAM NARRATIVE: GEN: Awake, alert , no acute distress , working with PT when seen in the morning/. CVS: S1S2 N RS: CTA B/L Abd: Soft, nt/nd , bs+ OCEAN EXPORT COORDINATOR: Appears to be at baseline neurological status. Able to answer simple questions, conversant Urinary Catheter Management^: Schmitt: Cath Placed During This Visit: no Discharge Data Data Completed and Pending: Completed Studies During Hospitalization Category Date Time Status CT angio chest PE protcl [id number] Stat Cat Scan 06/12/19 23:[address] head wo con* 7 [id number] Stat Cat Scan 06/13/19 01:19 Completed XR chest 1V denzel ble [id number] Routine Exams 06/14/19 07:00 Completed XR chest 1V denzel ble [id number] Stat Exams 06/12/19 22:05 Completed XR chest 1V denzel ble [id number] Stat Exams 06/13/19 10:30 Completed XR pelvis 1-2V* 7 2170 Stat Exams 06/15/19 18:04 Completed XR pelvis 1-2V* 7 2170 Urgent Exams 06/12/19 22:02 Completed XR shoulder RT 1V [id number] Routine Exams 06/15/19 09:50 Completed MR angio head wo con [id number] Stat MRI 06/14/19 08:35 Completed MR head wo con* 7 0551 Stat MRI 06/14/19 08:35 Completed CV carotid duplex BI* [id number] Routine Ultrasound 06/13/19 15:12 Completed CV echo complete* [id number] Routine Ultrasound 06/13/19 03:15 Completed Pending at discharge Category Date Time Status Blood Culture Sta t Lab 06/12/19 22:13 Results Labs from last 24 hours 06/17/19 06/17/19 06/17/19 04:50 04:50 04:50 WBC 13.5 H RBC 3.62 L Hgb 9.3 L Hct 29.4 L MCV 81.2 MCH 25.7 L MCHC 31.6 RDW 13.8 Plt Count 179 MPV 13.0 H Neut % (Auto) 89.8 Lymph % (Auto) 4.6 [place] % (Auto) 4.9 Eos % (Auto) 0.1 Baso % (Auto) 0.1 Neut # (Auto) 12.1 H Lymph # (Auto) 0.6 L [place] # (Auto) 0.7 Eos # (Auto) 0.0 Baso # (Auto) 0.0 Nucleated RBC % (a uto) 0 Nucleated RBCs # 0.0 Sodium 143 Potassium 3.7 Chloride 109 H Carbon Dioxide 23 Anion Gap 14.7 BUN 19 Creatinine 0.9 Glucose 143 H Calcium 8.8 Phosphorus 1.9 L Magnesium 2.0 Total Bilirubin 0.3 AST 30 ALT 11 Alkaline Phosphata se 56 Total Protein 6.0 L Albumin 2.7 L Globulin 3.3 Procalcitonin 0.14 Vitals: Last Vital Signs Temp 97.7 F 06/17/19 14:50 Pulse 90 06/17/19 14:50 Resp 18 06/17/19 14:50 BP 151/74 06/17/19 14:50 Pulse Ox 96 06/17/19 14:50 Discharge Plan Discharge Patient Disposition: Xfer SNF Condition: Stable Prescriptions: New celecoxib 200 mg Capsule 200 mg PO Q12H PRN (Reason: pain) Qty: 30 RF: 0 atorvastatin 40 mg Tablet 40 mg PO BEDTIME Qty: 30 RF: 0 ipratropium-albuterol 0.5 mg-3 mg(2.5 mg base)/3 mL Solution For Nebulization 3 ml inhalation Q4H PRN (Reason: Shortness Of Breath) Qty: 90 RF: 0 lisinopril 20 mg Tablet 20 mg PO BID 30 Days Qty: 60 RF: 0 tramadol 50 mg Tablet 50 mg PO Q4H PRN (Reason: Mild To Moderate Pain) Qty: 30 RF: 0 aspirin 325 mg Tablet,Delayed Release (Dr/Ec) 325 mg PO DAILY Qty: 0 RF: 0 amlodipine 10 mg Tablet 10 mg PO DAILY Qty: 0 RF: 0 Continued fluoxetine 20 mg/5 mL (4 mg/mL) Solution 15 mg PO DAILY RF: 0 Tylenol 325 mg Tablet 650 mg PO QID PRN (Reason: Pain) RF: 0 Zyrtec 10 mg Tablet 10 mg PO DAILY RF: 0 Zofran 4 mg Tablet 4 mg PO Q6H PRN (Reason: Nausea And Vomiting) RF: 0 guaifenesin 100 mg/5 mL Liquid 200 mg PO Q6H RF: 0 ferrous sulfate 325 mg (65 mg iron) Tablet 325 mg PO DAILY RF: 0 28-800 mg-mcg Tablet 1 tab PO DAILY RF: 0 Discontinued amoxicillin 250 mg Capsule 250 mg PO TID RF: 0 Discharge Orders: Discharge Order (Routine); Ordered 06/16/19 Ordered By: Leilani Khalil Referrals: [facility] [Outside] Leilani Khalil MD [Physician] - 2 weeks Discharge Diet: Soft Mechanical Discharge Activity: Limit activity as instructed, Use walker/crutches as instructed and As per PT/OT instructions Patient Instructions: Lisinopril (By mouth), Aspirin (By mouth), Amlodipine (By mouth), Tramadol (By mouth), Atorvastatin (By mouth), Celecoxib (By mouth), Urinary Tract Infection in Women (DC), Ischemic Stroke (DC), Hypoxia (GEN), Hip Arthroscopy (DC) Activity Restrictions/Additional Instructions: May weight-bear as tolerated with posterior hip precautions. Dressing changes as needed. Discharge Date/Time: 06/17/19 14:51 Discharge Attestations Time Spent in Discharge Care*: greater than 30 min Quality Metrics Clinical Quality Measures During this hospital stay, did patient experience: Stroke Contraindication to Antithrombotic: Antithrombotic prescribed Contraindication to Anticoagulation: Other Contraindication to Statin: Statin prescribed Coding Level of Care Code Acute Senior Health Physics Technician for [facility] Diagnoses Fracture of femoral neck, right S72.001A Encounter type: initial encounter Fracture type: closed CVA (cerebral vascular accident) I63.9 Hypoxia R09.02 Hypertension I10 UTI (urinary tract infection) N39.0
--- NOTE | 2019-06-17 15:49 | P.PN_ITS ---
Subjective Subjective: Interval history: The patient continues to do well. She is working with physical therapy. From an orthopedic perspective, she is ready for discharge. Medications: Reviewed: Yes Vitals/I&O/Wt Last Vital Signs Temp 97.7 F 06/17/19 14:50 Pulse 90 06/17/19 14:50 Resp 18 06/17/19 14:50 BP 151/74 06/17/19 14:50 Pulse Ox 96 06/17/19 14:50 06/17/19 06/17/19 06/17/19 06:59 14:59 22:59 Intake Total 616.667 / 3144.584 809.583 / 809.583 Balance 616.667 / 3144.584 809.583 / 809.583 Physical Exam Narrative: EXAM NARRATIVE: Patient's wound is benign. There is no significant swelling about the thigh, erythema, or evidence of infection. There is no drainage. The calf is soft and nontender. There is no evidence of DVT. Urinary Catheter Management^: Schmitt: Cath Placed During This Visit: no Data : 06/17/19 04:50 06/17/19 04:50 A&P Assessment and plan (1) History of hemiarthroplasty of right hip: Patient underwent right hip hemiarthroplasty and is doing well following this. She is working with physical therapy. The plan will be that she return to her nursing facility. This is where she resides routinely secondary to her MS and issues associated with this. Cleared by the medical service and will be discharged to custodial today. Status: Acute Code(s): Z96.641 - Presence of right artificial hip joint (2) Fracture of femoral neck, right: This has resolved with hemiarthroplasty from which the patient is doing well. Status: Resolved Qualifiers: Encounter type: initial encounter Fracture type: closed Qualified Code(s): S72.001A - Fracture of unspecified part of neck of right femur, initial encounter for closed fracture Code(s): S72.001A - Fracture of unspecified part of neck of right femur, initial encounter for closed fracture Attestations Medical Necessity Statement*: Per medical service. Coding Level of Care Code Acute Central Sterilization Technician for [facility] Diagnoses History of hemiarthroplasty of right hip Z96.641 Fracture of femoral neck, right S72.001A Encounter type: initial encounter Fracture type: closed
== END 2019-06-17 14:51 | disposition skilled nursing facility (03) | DRG 469 ==
LOC: ER 23:36 → MEDSURG 23:40 → ICU 06-13 01:34 → MEDSURG 06-13 02:19
PROVIDERS: Family Medicine; Nurse Practitioner Family; Specialist; Admitting Provider Internal Medicine; Emergency Provider Emergency Medicine; Visit Provider Student in an Organized Health Care Education/Training Program
PROC: (CPT 27125; principal; 2019-06-15 15:15)
DX: S72.011A Unspecified intracapsular fracture of right femur, initial encounter for closed fracture (principal); J96.01 Acute respiratory failure with hypoxia; J69.0 Pneumonitis due to inhalation of food and vomit; N39.0 Urinary tract infection, site not specified; R29.704 NIHSS score 4; G35 Multiple sclerosis; Z99.3 Dependence on wheelchair; F41.9 Anxiety disorder, unspecified; J43.9 Emphysema, unspecified; F03.90 Unspecified dementia, unspecified severity, without behavioral disturbance, psychotic disturbance, mood disturbance, and anxiety; W19.XXXA Unspecified fall, initial encounter; I10 Essential (primary) hypertension; Z53.09 Procedure and treatment not carried out because of other contraindication; F17.210 Nicotine dependence, cigarettes, uncomplicated
CPT/HCPCS: 12345; 36415; 36416; 36600; 51702; 70450; 70544; 70551; 71045; 71275; 72170; 73020; 80053; 82803; 82962; 83735; 84100; 84145; 85025; 85610; 85730; 86850; 86900; 87040; 92610; 93005; 93306; 93880; 94664; 96360; 96361; 96365; 96366; 96374; 96375; 97161; 97167; 97530; 97535; 99282; C1776; J0131; J0360; J0690; J0696; J1100; J2001; J2270; J2405; J2543; J2704; J2920; J2930; J3010; J3490; J7030; J7799

== ENCOUNTER → 2019-07-12 15:35 | Outpatient (BNVA) | payer OTHER, MEDICAID, SELFPAY | PROVIDERS: Visit Provider Specialist | DX: Z48.89 Encounter for other specified surgical aftercare (principal) | CPT/HCPCS: 73502 ==